=== PATIENT | male | born 1955 | race Caucasian/White ===

== ENCOUNTER 2018-05-28 07:43 | Inpatient (IN) | payer MEDICARE ==
[2018-05-28] VITALS (26 sets, daily range): BP systolic 148–179; BP diastolic 76–102; BMI 35.9
[~2018-05-28] VITALS: Ht 180.3 cm; Wt 100.3 kg
--- NOTE | ~2018-05-28 | HEMODYNAMI ---
PATIENT:ISAIAH GRAF MEDICAL RECORD: [id number] : 51 LOCATION:[facility] ADMISSION DATE: 05/28/18 Generatedon:05/31/201811:37 Patient name: ISAIAH GRAF Patient #: [id number] SSN: D OB: 1955 Date of study: 05/31/2018 Page: Of Hemodynamic Procedure Report Patient Data Patient Demographics Procedure consent was obtained First Name: ISAIAH Gender: Male Last Name: LESIA : 1955 Patient #: [id number] Age: 62 year(s) Race: Unknown Additional ID: [id number] Contact details [address]: [address] [place] [address] State: [place] City: [place] Zip code: [address] Past Medical History Allergies: No known allergies Admission Admission Data Admission Date: 05/28/2018 Admission Time: 9:12 Room #: [facility] Lab Results Lab Result Date: 05/31/2018 Lab Result Time: 5:30 Biochemistry Name Units Result Min Max BUN mg/dl 50 --(----)-* 7 18 Creatinine mg/dl 4.6 --(----)-* 0.6 1.3 CBC Name Units Result Min Max Hematocrit % 31.9 *-(----)-- 42 54 Hemoglobin g/dl 10.8 *-(----)-- 13.5 17.5 Procedure Procedure Types Cath Procedure Diagnostic Procedure [facility] w/Coronaries PCI Procedure Coronary Stent Coronary Stent Initial Procedure Description Procedure Date Procedure Date: 05/31/2018 Procedure Start Time: 11:22 Procedure End Time: 11:35 Procedure Staff Name Function Dwight Olivera MD Performing Physician Ollie Bellamy RT Monitor Yahir Guaman RN Nurse Nadia Kat RT Scrub Cortes Dawson RT Steel Engraver Procedure Data Cath Procedure Fluoroscopy Diagnostic fluoroscopy Total fluoroscopy Time: 2.7 time: 2.7 min min Diagnostic fluoroscopy Total fluoroscopy dose: 758 dose: 758 mGy mGy Contrast Material Contrast Material Type Amount (ml) Isovue 300 80 Entry Location Entry Primary Successful Side Size Upsize Upsize Entry Closure Lee ccessful Closure Location (Fr) 1 (Fr) 2 (Fr) Remarks Device Remarks Radial Right 6 Fr Mechanical artery Short Compression Estimated blood loss: 10 ml Diagnostic catheters Device Type Used For End Catheter Placement DIAGNOSTIC [place] 110cm 5 Procedure Fr catheter (001501) Procedure Complications No complications Procedure Medications Medication Administration Route Dosage 0.9% NaCl I.V. 10 ml/hr Oxygen etCO2 Nasal cannula 2 l/min Heparin Flush Bag added to field 2 bags (1000units/500ml NS) Lidocaine 2% added to field 20 Dobutamine 5 mcg/kg/min (500mg/250ml D5W) Radial Cocktail added to field 1 syringe (Verapomil 2mg/Nitro 400mcg/Heparin 1500units) Versed I.V. 2 mg Fentanyl I.V. 100 mcg Radial Cocktail I.A. 1 syringe (Verapomil 2mg/Nitro 400mcg/Heparin 1500units) Heparin Bolus I.V. 4000 units Integrilin (Bolus I.V. 9.5 ml 2mg/ml) Integrilin (Bolus wasted 0.5 ml 2mg/ml) Plavix P.O. 600 mg Hemodynamics Rest HGB: 10.8 (g/dl) Heart Rate: 65 (bpm) Snapshots Pre Cath Intra NCS Post Cath Vital Signs Time Heart Resp SPO2 etCO2 NIBP (mmHg) Rhythm Pain Sedation Rate (ipm) (%) (mmHg) Status Level (bpm) 11:12:00 71 16 94 26.7 145/92(116) NSR 0 (11) 10(A) , No pain 11:16:28 70 12 96 31.1 157/80(121) NSR 0 (11) 10(A) , No pain 11:20:57 70 14 90 29.6 144/87(123) NSR 0 (11) 10(A) , No pain 11:25:17 73 14 93 31.9 109/65(96) NSR 0 (11) 9(A) , No pain 11:29:33 69 12 89 28.2 126/71(96) NSR 0 (11) 9(A) , No pain 11:33:53 71 15 90 28.2 131/79(105) NSR 0 (11) 10(A) , No pain Medications Time Medication Route Dose Verified Delivered Reason Notes Effectiveness by by 11:09:57 0.9% NaCl I.V. 10 ml/hr Yahir Yahir Per physician Rowena Guaman RN RN 11:10:07 Oxygen etCO2 2 l/min Yahir Yahir for low 02 sats Nasal Rowena Guaman cannula RN RN 11:10:19 Heparin Flush added to 2 bags Yahir Yahir used for Bag field Lorrobert Lorrobert procedure (1000units/500ml RN RN NS) 11:10:30 Lidocaine 2% added to 20ml vial Yahir Yahir for local field Lorigan Lorrobert anesthetic RN RN 11:11:16 Dobutamine I.V. 5 Yahir Yahir Per physician (500mg/250ml drip mcg/kg/min Rowena Guaman D5W) infusing RN RN upon arrival 11:18:37 Radial Cocktail added to 1 syringe Yahir Yahir used for (Verapomil field Lorigan Lorigan procedure 2mg/Nitro RN RN 400mcg/Heparin 1500units) 11:21:06 Versed I.V. 2 mg Yahir Yahir for sedation Rowena Guaman RN RN 11:21:14 Fentanyl I.V. 100 mcg Yahir Yahir for sedation Rowena Guaman RN RN 11:23:32 Radial Cocktail I.A. 1 syringe Yahir Dwight for (Verapomil Lorigan Tauth MD vasodilation 2mg/Nitro RN 400mcg/Heparin 1500units) 11:28:22 Heparin Bolus I.V. 4000 units Yahir Yahir for Rowena Guaman anticoagulation RN RN 11:28:38 Integrilin I.V. 9.5 ml Yahir Yahir for (Bolus 2mg/ml) Rowena Guaman antiplatelet RN RN therapy 11:28:50 Integrilin wasted 0.5 ml Yahir Yahir to sharp's (Bolus 2mg/ml) Rowena Guaman RN RN 11:37:22 Plavix P.O. 600 mg Yahir Yahir for Rowena Guaman antiplatelet RN RN therapy Procedure Log Time Note 10:52:56 Time tracking: Regular hours (M-F 7:00 - 5:00) 10:53:00 Plan of Care:Hemodynamics will remain stable., Cardiac rhythm will remain stable., Comfort level will be maintained., Respiratory function will remain adequate., Patient/ family verbilizes understanding of procedure., Procedure tolerated without complication., Recovers from procedure without complications.. 10:53:11 Cortes Dawson RT(R) sent for patient. Start room use. 10:58:15 Patient received from CVICU to CCL 1 Alert and oriented. Tansferred to table in Supine position. 10:58:16 Warm blankets applied, and lorie hugger turned on for patient comfort. 10:58:16 Correct patient and procedure confirmed by team. 10:58:17 Signed procedure consent form obtained from patient. 10:58:18 ECG and BP/O2 sat monitors applied to patient. 10:58:19 Pre-procedure instructions explained to patient. 10:58:19 Pre-op teaching completed and patient verbalized understanding. 10:58:29 H&P Date Dictated: 05/28/2018 Within 30 days and on chart.. 10:59:15 Lab Result : BUN 50 mg/dl 10:59:15 Lab Result : Hemoglobin 10.8 g/dl 10:59:15 Lab Result : Creatinine 4.6 mg/dl 10:59:15 Lab Result : Hematocrit 31.9 % 10:59:17 Lab results completed and on chart. 11:09:57 0.9% NaCl 10 ml/hr I.V. was administered by Yahir Guaman RN; Per physician; 11:10:07 Oxygen 2 l/min etCO2 Nasal cannula was administered by Yahir Guaman RN; for low 02 sats; 11:10:19 Heparin Flush Bag (1000units/500ml NS) 2 bags added to field was administered by Yahir Guaman RN; used for procedure; 11:10:30 Lidocaine 2% 20ml vial added to field was administered by Yahir Guaman RN; for local anesthetic; 11:10:36 Vital chart was started 11:10:40 Baseline sample Acquired. 11:10:43 Rhythm: sinus rhythm 11:10:44 Full Disclosure recording started 11:10:47 Family unavailable. 11:10:52 Patient NPO since Midnight. 11:11:02 Patient allergic to No known allergies 11:11:09 Is the patient allergic to Iodine/contrast media? No. 11:11:16 Dobutamine (500mg/250ml D5W) 5 mcg/kg/min I.V. drip infusing upon arrival was administered by Yahir Guaman RN; Per physician; 11:11:18 Is patient on blood thinner?No 11:11:57 Patient diabetic? Yes. 11:11:59 If diabetic: On Metformin? Yes 11:12:23 last dose metformin before hospital stay 11:12:24 ----Pre-sedation anethsthesia assessment.---- 11:12:27 Previous problem with sedation/anesthesia? No ? 11:12:30 Snore? Yes 11:12:31 Sleep apnea? Yes 11:12:33 Deviated septum? No 11:12:34 Opens mouth fully? Yes 11:12:36 Sticks out tongue? Yes 11:12:39 Airway obstruction? No ? 11:12:41 Dentures? No ? 11:12:43 Pre procedure: right dorsailis pedis pulse 1+ Palpable, but thready & weak; easily obliterated 11:12:46 Modified Mayco's test Ulnar < 7 seconds 11:12:48 Patient pain scale 0/10 ?. 11:13:00 IV patent on arrival in right IJ with 0.45%NaCl at KVO. 11:13:12 IV patent on arrival in right antecubital with 0.9% NaCl at 10ml/hr. 11:13:47 ij does not have saline/no selection 11:13:54 Right Radial & Right Groin area was prepped with chlora-prep and draped in sterile fashion 11:13:55 Alarms reviewed by R. N. 11:13:56 Sharps counted by scrub and verified by R.N. 11:14:16 Physician arrived 11:18:37 Radial Cocktail (Verapomil 2mg/Nitro 400mcg/Heparin 1500units) 1 syringe added to field was administered by Yahir Guaman RN; used for procedure; 11:20:13 Zero performed for pressure channel P1 11:20:30 --------ALL STOP TIME OUT------ 11:20:31 Final Timeout: patient, procedure, and site verified with staff and physician. All members of the team are in agreement. 11:20:33 Right Radial & Right Groin site verified by team. 11:20:36 Maximum allowable Isovue 300 dose 300ml. Physician notified. (300ml for normal creatinines. For patients with creatinine of 1.7 or higher multiply weight(kg) x 5 divided by creatinine.) 11:20:38 Fire Safety Assessment: A--An alcohol-based skin anteseptic being used preoperatively., C--Open oxygen or nitrous oxide is being used., D--An ESU, laser, or fiber-optic light is being used. 11:20:42 Physical assessment completed. ASA score P 3 - A patient with severe systemic disease as per Dwight Olivera MD. 11:20:45 Sedation plan: IV Moderate Sedation Medication:Versed, Fentanyl 11:20:50 Use device set Radial Dx or PCI 11:20:51 ACIST Syringe (79289) opened to sterile field. 11:20:51 Medline Cath Pack ([id number]) opened to sterile field. 11:20:52 Bag Decanter (2002) opened to sterile field. 11:20:53 ACIST Hand Control (72294) opened to sterile field. 11:20:53 ACIST Manifold (82446) opened to sterile field. 11:20:53 Tegaderm 4 x 4 (1626W) opened to sterile field. 11:20:54 MBrace Wrist Support ([id number]) opened to sterile field. 11:20:54 DIAGNOSTIC WIRE .035 260cm J wire (977311) opened to sterile field. 11:20:56 SHEATH 6FR Slender (08-4858) opened to sterile field. 11:21:06 Versed 2 mg I.V. was administered by Yahir Guaman RN; for sedation; 11:21:14 Fentanyl 100 mcg I.V. was administered by Yahir Guaman RN; for sedation; 11:22:32 Procedure started. 11:22:35 Local anesthetic to right radial artery with Lidocaine 2% by Dwight Olivera MD.INITIAL ACCESS ONLY 11:22:44 A 6 Fr Short sheath was inserted into the Right Radial artery 11:22:52 A DIAGNOSTIC [place] 110cm 5 Fr catheter (697403) was advanced over the wire and used for Procedure. 11:23:32 Radial Cocktail (Verapomil 2mg/Nitro 400mcg/Heparin 1500units) 1 syringe I.A. was administered by Dwight Olivera MD; for vasodilation; 11:24:09 LV gram done using RUVALCABA 11:24:12 Injector settings: Ml/sec: 5, Volume: 15, 11:24:13 LV hemodynamics recorded. 11:24:18 EF : 35 % 11::22 LCA angiography performed. 11::52 INFLATOR Merit Jonapak (XG6857) opened to sterile field. 11::52 CHOICE PT Extra Support 182cm wire ([id number]) opened to sterile field. 11:25:52 RCA angiography performed. 11::11 Catheter removed. 11::48 GUIDE 6FR XBLAD 3.5 catheter ([id number]) opened to sterile field. 11::12 6 Fr xblad 3.5 guide catheter was inserted over the wire 11::24 choice pt es wire advanced. 11::22 Heparin Bolus 4000 units I.V. was administered by Yahir Guaman RN; for anticoagulation; 11::29 Wire advanced across lesion. 11:28:38 Integrilin (Bolus 2mg/ml) 9.5 ml I.V. was administered by Yahir Guaman RN; for antiplatelet therapy; 11::50 Integrilin (Bolus 2mg/ml) 0.5 ml wasted was administered by Yahir Guaman RN; to sharp's; 11:29:33 Place stent Inflation Number: 1 A INTEGRITY RX 2.75 x 26 stent ([id number]) was prepped and advanced across the Mid CX. The stent was deployed at 17 RAFIQ for 0:10 (min:sec). 11:29:47 Stent catheter was removed intact over wire. 11:31:53 Place stent Inflation Number: 1 A INTEGRITY RX 3.0 x 22 stent ([id number]) was prepped and advanced across the Prox CX. The stent was deployed at 15 RAFIQ for 0:10 (min:sec). 11:32:02 Stent catheter was removed intact over wire. 11:32:02 Wire removed. 11:32:03 Guide catheter removed. 11:32:55 TR BAND Large ([id number]) opened to sterile field. 11:33:04 Sheath removed intact; hemostasis achieved with Mechanical Compression to the Right Radial artery. 11:33:05 Procedure ended.(Physican Out) 11:33:16 Fluoroscopy time 02.70 minutes. :33:21 Fluoroscopy dose: 758 mGy 11:33:21 Flurop Dose total: 758 11:33:24 Contrast amount:Isovue 300 80ml. 11:33:26 Sharps counted by scrub and verified by R.N. 11:33:28 TR band inflated with 12cc of air. 11:33:29 Insertion/operative site no bleeding no hematoma. 11:33:33 Post right radial artery:stable, soft, clean and dry 11:33:34 Post Procedure Pulses reassessed and unchanged 11:33:37 Post-procedure physical assessment completed. ASA score P 3 - A patient with severe systemic disease as per Dwight Olivera MD. 11:34:06 Post procedure rhythm: unchanged. 11:34:09 Estimated blood loss: 10 ml 11:34:10 Post procedure instruction explained to patient.Patient verbalizes understanding. 11:34:11 Patient needs reinforcement of post procedure teaching. 11:34:23 Procedure type changed to Cath procedure, Diagnostic procedure, LHC, LHC w/Coronaries, PCI procedure, Coronary Stent, Coronary Stent Initial 11:35:02 Procedure and supply charges have been captured, reviewed, submitted and are correct. 11:35:04 Procedure Complication : No complications 11:35:06 Vital chart was stopped 11:35:06 See physician's report for complete and final results. 11:35:07 Report given to Pre/Post Procedure Room. 11:35:09 Patient transfered to Pre/Post Procedure Room with Stretcher. 11:35:11 Procedure ended. 11:35:11 Full Disclosure recording stopped 11:35:14 End room use (Document Last) 11:37:22 Plavix 600 mg P.O. was administered by Yahir Guaman RN; for antiplatelet therapy; Intervention Summary Intervention Notes Time ActionType Lesion and Equipment Action# Pressure Duration Attributes Used 11:29:33 Place stent Mid CX INTEGRITY RX 1 17 00:10 2.75 x 26 stent ([id number]) 11:31:53 Place stent Prox CX INTEGRITY RX 1 15 00:10 3.0 x 22 stent ([id number]) Device Usage Item Name Manufacture Quantity Catalog Number Hospital Part Current Mini mal Lot# / Charge Number Stock Stock Serial# Code ACIST Acist 1 96018 197412 474144 708604 20 Syringe AirPair (27498) MoPowered Medline Cath Medline 1 [id number] 436540 86795 259955 5 Pack ([id number]) Bag Decanter Microtek 1 032965 50922 858779 5 (2001S) Medical Inc. ACIST Hand Acist 1 58070 264995 837306 098510 5 Control Medical (17389) Systems Inc ACIST Acist 1 46186 559450 803992 032651 5 Manifold Medical (49488) Systems Inc Tegaderm 4 x 3M 1 1626W 708316 992521 678037 5 4 (1626W) MBrace Wrist Advanced 1 140-0250-00 143153 82511 444811 5 Support Vascular (148547111) Dynamics DIAGNOSTIC St Kike 1 814880 450222 974679 026374 30 WIRE .035 260cm J wire (512911) SHEATH 6FR Terumo 1 [id number] 429469 965982 419490 5 Slender (80-1060) DIAGNOSTIC Terumo 1 40-1133 873495 097742 571148 5 [place] 110cm 5 Fr catheter (387938) INFLATOR [employer] [place] 1 OR6050 681284 335107 900217 15 [facility] Medical BasixCompak (UN0674) CHOICE PT Newcomb 1 [id number] 958444 984004 643286 5 Extra Scientific Support 182cm wire ([id number]) GUIDE 6FR Cardinal 1 [id number] 022341 798579 375223 10 XBLAD 3.5 Health catheter (70624919) INTEGRITY RX Medtronic 1 [id number] 031232 037339 456939 5 [id number] 2.75 x 26 stent ([id number]) INTEGRITY RX Medtronic 1 [id number] 690117 303493 534767 5 [id number] 3.0 x 22 stent ([id number]) TR BAND Terumo 1 [id number] 616033 810589 115149 40 Large ([id number]) Signature Audit [place] Stage Time Signature Unsigned Intra-Procedure 05/31/2018 Ollie Bellamy 11:37:48 AM RT(R) Signatures Monitor : Ollie Bellamy RT Signature : Date : Time : [facility] [address] [place] [address]
[2018-05-28] MEDS ORDERED: ASPIRIN81 MG (09:28)
[2018-05-28] MEDS ORDERED: CATAPRES0.2 MG PO (09:29)
--- NOTE | 2018-05-28 10:20 | NUR ---
RECEIVED FROM ER INTO ROOM CV2 AND HOOKED UP TO MONITORING DEVICES. IMMEDIATLY PLACED ON BIPAP BY RT. SATTING 91% ON 75% FI02. RR 20 EVEN AND UNLABORED. CM=NS RATE OF 84. BP 159/96. RIGHT AC 20 GA PIV=SL. HAS "CANCER" ON EACH SIDE OF HIS NOSE AND RIGHT TEMPORAL. DIME SIZE X3.CLWR. CPOC.
--- NOTE | 2018-05-28 11:22 | NUR ---
DR. WHEELER HAS ALREADY SEEN PT. IN ER PER ENGLISH TEACHER.
--- NOTE | 2018-05-28 12:00 | NUR ---
DR. WHEELER HERE IN CVICU. DISCUSSED HNT WITH HIM. NO NEW ORDERS. GOING TO BE DYALIZED LATER THIS EVENING.
[2018-05-28 12:04] LABS: BASOPHILS 0.4 % (0-2); EOSINOPHILS 0.6 % (0-7); HEMATOCRIT 33.7 % (42.0-54.0); HEMOGLOBIN 11.3 g/dL (13.5-17.5); IMMATURE GRANULOCYTES 0.2 % (0-5); LYMPHOCYTES 18.1 % (15-50); MCHC 33.5 g/dL (31.0-37.0); MCV 92.3 fL (80.0-100.0); MEAN PLATELET VOLUME 9.7 fL (7.4-10.4); MONOCYTES 7.2 % (2-11); NEUTROPHILS 73.5 % (40-80); PLATELET COUNT 161 10x3/uL (130-400); RBC 3.65 10x6/uL (4.20-6.10); RDW 13.8 % (11.5-14.5); WBC 8.4 10x3/uL (4.8-10.8)
[2018-05-28 12:19] LABS: INR 1.08 (0.85-1.17); PROTIME 13.5 SECONDS (11.6-15.0)
[2018-05-28 12:41] LABS: ALBUMIN 2.8 g/dL (3.4-5.0); ANION GAP 16.9 mmol/L (8-16); BILIRUBIN - TOTAL 0.55 mg/dL (0.2-1.3); CALCIUM 8.6 mg/dL (8.5-10.1); CARBON DIOXIDE 24.5 mmol/L (21.0-32.0); CREATININE - SERUM 4.7 mg/dL (0.6-1.3); POTASSIUM - SERUM 3.4 mmol/L (3.5-5.1); PROTEIN - SERUM 7.3 g/dL (6.4-8.2)
[2018-05-28 12:43] LABS: TROPONIN-I 1.243 ng/mL (0.000-0.060)
--- NOTE | 2018-05-28 12:52 | NUR ---
I CALLED DR. WHEELER ABOUT TROPONIN LEVEL OF 1.243 DOCUMENTED AT 1140. CONSULT CARDIOLOGY AND GET ECHO TODAY.
--- NOTE | 2018-05-28 14:34 | NUR ---
ECHO BEING DONE.
--- NOTE | 2018-05-28 15:09 | NUR ---
REASSESSMENT COMPLETED PER FLOW SHEET. NO ACUTE CHANGES.
--- NOTE | 2018-05-28 17:05 | NUR ---
REMAINS ON BIPAP. CM=NS RATE OF 63.
--- NOTE | 2018-05-28 18:44 | NUR ---
CONSENT OBTAINED FOR PLACEMENT OF TRYALISIS CATH.
--- NOTE | 2018-05-28 19:22 | NUR ---
BEDSIDE REPORT GIVEN BY DEPARTING RN. VSS. PT LAYING IN BED ON BIPAP. SIP OF WATER PROVIDED. REPOSITIONS SELF. SAFETY MEASURES IN PLACE. CBIR.
--- NOTE | 2018-05-28 20:13 | NUR ---
ASSESSMENT COMPLETE. AAOX4. PERRLA. RT AC PIV INFUSING MD ORDERED MEDS. F/C NOTED AND DRAINING CLEAR YELLOW URINE. AFEBRILE. SEE FLOWSHEET FOR FULL ASSESSMENT. SAFETY MEASURES IN PLACE. CBIR.
--- NOTE | 2018-05-28 23:06 | NUR ---
DR. HO AT BEDSIDE TO PERFORM TRIAL CATH. PT TOLERATED WELL.
--- NOTE | 2018-05-28 23:19 | NUR ---
REASSESSMENT COMPLETE. NO CHANGES NOTED. NO SS OF DISTRESS.
[2018-05-29] VITALS (24 sets, daily range): BP systolic 100–179; BP diastolic 55–94; Ht 180.3 cm; Wt 100.3 kg
--- NOTE | 2018-05-29 02:47 | NUR ---
DIALYSIS COMPLETE. 4L PULLED.
--- NOTE | 2018-05-29 03:17 | NUR ---
REASSESSMENT COMPLETE. NO CHANGES NOTED. DENIES PAIN. PLEASANT.
[2018-05-29 06:35] LABS: BASOPHILS 0.3 % (0-2); EOSINOPHILS 1.6 % (0-7); HEMATOCRIT 35.8 % (42.0-54.0); IMMATURE GRANULOCYTES 0.2 % (0-5); LYMPHOCYTES 17.6 % (15-50); MCH 30.9 pg (26.0-34.0); MCHC 33.5 g/dL (31.0-37.0); MCV 92.3 fL (80.0-100.0); MEAN PLATELET VOLUME 9.9 fL (7.4-10.4); MONOCYTES 6.8 % (2-11); NEUTROPHILS 73.5 % (40-80); PLATELET COUNT 180 10x3/uL (130-400); RBC 3.88 10x6/uL (4.20-6.10); RDW 13.9 % (11.5-14.5); WBC 9.2 10x3/uL (4.8-10.8)
[2018-05-29 06:41] LABS: CALCIUM 8.7 mg/dL (8.5-10.1); CARBON DIOXIDE 26.3 mmol/L (21.0-32.0); CREATININE - SERUM 3.7 mg/dL (0.6-1.3); PHOSPHOROUS 4.5 mg/dL (2.5-4.9); POTASSIUM - SERUM 3.3 mmol/L (3.5-5.1)
[2018-05-29 06:45] LABS: TROPONIN-I 0.776 ng/mL (0.000-0.060)
--- NOTE | 2018-05-29 07:00 | NUR ---
REPORT RECEVIED FROM THE OFF STORM DOMINGUEZ. SEE ASSESSMENT IN THE PTS FLOW SHEET. PT A&OX4. PT LYING IN BED WITH A BIPAP ON AT 40%. VSS AT THIS TIME. NSR WITH ST DEPRESSION. RIGHT IJ TRIALYSIS NOTED WITH BUMEX INFUSING. SEE IV FLOW SHEET. FC NOTED WITH CLEAR, YELLOW URINE. DENIES PAIN AT THIS TIME. CALL LIGHT IN REACH. WILL CONT POC.
--- NOTE | 2018-05-29 08:00 | NUR ---
DR WHEELER IN THE UNIT.
--- NOTE | 2018-05-29 10:16 | NUR ---
BIPAP REMOVED AND PLACED ON 4L VIA NC. PT TOELRATING WELL. PO FLUIDS GIVEN WITH NO ISSUES. NO DYSPAGIA NOTED. PT TOOK PO MEDS WITH NO ISSUES. CALL LIGHT IN REACH. WILL CONT POC.
--- NOTE | 2018-05-29 11:30 | NUR ---
LUNCH TRAY PROVIDED FOR THE PT. NO DYSPAGIA NOTED.
--- NOTE | 2018-05-29 14:49 | NUR ---
IV STARTED X1 ATTEMPT TO RIGHT ARM. PATENT. DRESSING C/D/I. RIGHT IJ CENTRAL LINE DC'D PER DR BOYER ORDERS. LEFT IRON DRAIN REMOVED PER ORDERS. TPM WIRES DISCONNECTED AND WIRES COLIED. SUBSTERNAL DRESSING CHANGED AND C/D/I. PT TOLERATED WELL. WILL CONT POC.
--- NOTE | 2018-05-29 15:45 | NUR ---
DR LIA RUTHERFORD R/T HYPERTENSION AND DOBUTAMINE. SEE ORDERS FOR MEDICATION CHANGE.
--- NOTE | 2018-05-29 15:56 | NUR ---
INSTRUCTED THE PT NOT TO PICK AT THE SORES ON HIS NOSE FOR INFECTION REASONS. THE PT STATES "I CANT HELP IT. I KEEP FORGETING" WILL ATTEPMT TO INTERVEAN BEFORE HE STARTS SCRATCHING HIS NOSE.
--- NOTE | 2018-05-29 18:00 | NUR ---
SPOKE WITH THE DIALYSIS NURSE ABOUT DR WHEELER WANTING TO HAVE THE PT DIALYSED. THE NURSE STATED THEY HAVE NO ORDERS FOR DIALYSIS TODAY. DR WHEELER PAGED FOR CLARIFICATION.
--- NOTE | 2018-05-29 18:22 | NUR ---
DR SHAW CALLED AND BRAZING MACHINE OPERATOR HELPER FOR DR WHEELER. DR SHAW UPDATED ON THE PTS CONDITION/LABS/MEDICAITON. DR SHAW OK FOR THE PT TO WAIT UNTIL TOMORROW FOR DIALYSIS.
--- NOTE | 2018-05-29 19:09 | NUR ---
BEDSIDE SHIFT REPORT GIVEN BY DEPARTING RN. PT LAYING IN BED WATCHING TV. NOT HAPPY WITH TECHNICAL ISSUES WITH TV. NURSE CHANGED CHANNEL ON BACK OF TV FOR PT UNTIL DESIREABLE TV SHOW WAS CHOSEN. SAFETY MEASURES IN PLACE. CBIR.
--- NOTE | 2018-05-29 20:33 | NUR ---
HS MEDS GIVEN WITHOUT DIFFICULTY. SNACK PROVIDED.
[2018-05-29 21:10] LABS: CREATININE - URINE 58.6 mg/dL (30-125)
[2018-05-29 21:11] LABS: APPEARANCE HAZY (CLEAR); BILIRUBIN NEGATIVE (NEGATIVE); COLOR YELLOW (YELLOW); GLUCOSE 50 mg/dL (NEGATIVE); KETONE NEGATIVE (NEGATIVE); NITRITE NEGATIVE (NEGATIVE); PROTEIN 1+ mg/dL (NEGATIVE); SPECIFIC GRAVITY 1.015 (1.005-1.020); UROBILINOGEN NORMAL (NORMAL)
[2018-05-29 21:12] LABS: BACTERIA FEW /hpf (NONE SEEN); RED CELLS - URINE 0-5 /hpf (0-5)
[2018-05-29 21:18] LABS: PRO/CRE RATIO URINE 6.2 mg/g; PROTEIN - URINE 362.1 mg/dL (0.0-11.9)
--- NOTE | 2018-05-29 22:54 | NUR ---
PAGED DR. SHAW REGARDING PTS REPEATED REQUEST FOR SLEEPING MEDICATION AND PT ELEVATED FEVER. ORDERS RECEIVED, VERIFIED, AND READ BACK.
--- NOTE | 2018-05-29 23:11 | NUR ---
REASSESSMENT COMPLETE. VSS. LAYING IN BED WATCHING TV. VOICES CONCERN ABOUT NOT GETTING ANY SLEEP. PRN MED ALREADY GIVEN. INSTRUCTED PT TO BE PATIENT AND LET THE MEDICATION ABSORB. VERBALIZES UNDERSTANDING. SAFETY MEASURES IN PLACE. CBIR.
[2018-05-30] VITALS (17 sets, daily range): BP systolic 123–168; BP diastolic 68–86
--- NOTE | 2018-05-30 03:05 | NUR ---
REASSESSMENT COMPLETE. VSS. NO CHANGES NOTED. ASLEEP SHOWING NO SS OF DISTRESS.
--- NOTE | 2018-05-30 07:00 | NUR ---
REPORT RECEVIED FROM THE OFF GOING RN. SEE ASSESSMENT IN THE FLOW SHEET. PT IN BED RESTING WITH HIS EYES CLOSED ON HIS BIPAP. PT WOKE UP AND BIPAP REMOVED. VSS AT THIS TIME. PT A&OX4. NO COMPLAINTS AT THIS TIME. DENIES PAIN. RIGHT IJ TRIALYSIS NOTED. DRESSING C/D/I. SEE IV FLUIDS IN FLOW SHEET. DR WHEELER IN THE UNIT. AM LABS STILL PENDING. FC NOTED WITH CLEAR YELLOW URINE. BREAKFAST TRAY PROVIDED. CALL LIGHT IN REACH. WILL CONT POC.
[2018-05-30 07:25] LABS: BASOPHILS 0.3 % (0-2); EOSINOPHILS 2.5 % (0-7); HEMATOCRIT 31.9 % (42.0-54.0); HEMOGLOBIN 10.8 g/dL (13.5-17.5); IMMATURE GRANULOCYTES 0.1 % (0-5); LYMPHOCYTES 25.8 % (15-50); MCHC 33.9 g/dL (31.0-37.0); MCV 91.7 fL (80.0-100.0); MEAN PLATELET VOLUME 9.9 fL (7.4-10.4); NEUTROPHILS 62.3 % (40-80); PLATELET COUNT 180 10x3/uL (130-400); RBC 3.48 10x6/uL (4.20-6.10); RDW 13.6 % (11.5-14.5)
[2018-05-30 07:31] LABS: ANION GAP 14.7 mmol/L (8-16); CALCIUM 8.4 mg/dL (8.5-10.1); CARBON DIOXIDE 27.2 mmol/L (21.0-32.0); CREATININE - SERUM 4.6 mg/dL (0.6-1.3); PHOSPHOROUS 4.8 mg/dL (2.5-4.9)
[2018-05-30 07:39] LABS: WBC 6.8 10x3/uL (4.8-10.8)
[2018-05-30 07:56] LABS: POTASSIUM - SERUM 2.9 mmol/L (3.5-5.1)
--- NOTE | 2018-05-30 08:15 | NUR ---
DR WHEELER PAGED R/T AM LABS.
--- NOTE | 2018-05-30 08:32 | NUR ---
DR SHAW PAGED BACK FOR DR WHEELER. INFORMED HIM OF AM LABS. N.O FOR 20 KCL RIDER X2 TO EQUAL 40 MEQ OF K.
--- NOTE | 2018-05-30 10:34 | NUR ---
PT RECIEVED A FULL BEDBATH AND LINEN CHANGE. PT ASSISTED OOB AND INTO HIS BEDSIDE CHAIR. VSS. PT TOELRATED WELL. WILL CONT POC.
--- NOTE | 2018-05-30 10:38 | NUR ---
PT STATES THE PHARMACY HE USES IS THE [facility] IN [place]
--- NOTE | 2018-05-30 12:00 | NUR ---
PT LUNCH TRAY PROVIDED FOR THE PT. VSS. NO S/SX OF DISTRESS/DISCOMFORT NOTED. WILL CONT POC.
[2018-05-30 12:20] LABS: HEPATITIS C ANTIBODY <0.1 S/CO RAT (0.0-0.9)
--- NOTE | 2018-05-30 15:10 | OP ---
PATIENT NAME: ISAIAH GRAF MEDICAL RECORD: [id number] :51 LOCATION:D.CVI D.CV02 ADMISSION DATE:05/28/18 SURGEON: ARACELI HO MD DATE OF OPERATION: 05/28/2018 PREOPERATIVE DIAGNOSES: 1. Need for dialysis access. 2. Rjnvr-pp-fkzrhhw renal failure. 3. Hypoxia. 4. Hypertension. 5. Morbid obesity. POSTOPERATIVE DIAGNOSES: 1. Need for dialysis access. 2. Iqbjh-hn-zvfethy renal failure. 3. Hypoxia. 4. Hypertension. 5. Morbid obesity. PROCEDURE: Right IJ 15 cm Trialysis catheter placement. SURGEON: Araceli Ho MD REPORT OF PROCEDURE: The patient's right chest was prepped and draped in sterile fashion. A needle was used to cannulate the right internal jugular vein and a guidewire was advanced with ease. Over this wire, a dilator was placed followed by the Trialysis catheter. The catheter aspirated nonpulsatile dark blood and flushed easily in all 3 ports. This was sutured into place with 3-0 silk ties and dressed appropriately. COMPLICATIONS: None. CONDITION: Stable. ANESTHESIA: Local. BLOOD LOSS: Minimal. Procedure done at the bedside. TRANSINT:[id number] Voice Confirmation ID: [id number] DOCUMENT ID: [id number] ARACELI HO MD at 1510 CC: [id number] DICTATION DATE: 05/28/18 2329 DELI SLICER: 05/29/18 0141 ADM IN [facility] [address] [id number]
--- NOTE | 2018-05-30 15:23 | NUR ---
PT RESTING IN HIS BEDSIDE CHAIR. VSS. NO COMPLAINTS AT THIS TIME. CALL LIGHT IN REACH. WILL CONT POC.
--- NOTE | 2018-05-30 16:13 | MORECARE ---
CASE MANAGEMENT DISCHARGE SUMMARY PATIENT: ISAIAH GRAF UNIT: [id number] ADM DATE: 05/28/18 AGE: 62 : 53 SEX: M ROOM/BED: D[facility] AUTHOR: ARTUR HINDS PHYSICIAN: REFERRING PHYSICIAN: SILVINA WHEELER MD DATE OF SERVICE: 05/30/18 Discharge Plan Patient Name: ISAIAH GRAF [facility] [facility] 1955 Planned Disposition: Home or Self Care Anticipated Discharge Date: Discharge Date: Expected LOS: Initial Reviewer: [email or web address] Initial Review Date: 05/28/2018 Generated: 05/30/18 5:13 pm DCPIA - Discharge Planning Initial Assessment Updated by [email or web address]: Noelle Sapp on 05/30/18 4:12 pm * Is the patient Alert and Oriented? Yes * How many steps to enter\exit or inside your home? * PCP Andrew Graf [facility] * Pharmacy [facility] [phone] * Preadmission Environment Home with Family * ADLs Independent * Equipment None * List name and contact numbers for known caregivers / representatives who currently or will assist patient after discharge: Franklin Graf - [facility] [phone] * Verbal permission to speak to the caregivers and representatives has been obtained from the patient. Yes * Community resources currently utilized None * Additional services required to return to the preadmission environment? No * Can the patient safely return to the preadmission environment? Yes * Has this patient been hospitalized within the prior 30 days at any hospital? No Patient Name: ISAIAH GRAF Page [phone] at 1613 All edits/amendments must be made on the electronic document DICTATION DATE: 05/30/18 161 SALES ASSOCIATE KEY HOLDER: REG 05/30/18 161 RPT#: [id number] DC DATE: STATUS: ADM IN [facility] [address] [place] [address] END OF REPORT
--- NOTE | 2018-05-30 16:27 | MORECARE ---
CASE MANAGEMENT DISCHARGE SUMMARY PATIENT: ISAIAH GRAF UNIT: [id number] ADM DATE: 05/28/18 AGE: 62 : 53 SEX: M ROOM/BED: D[facility] AUTHOR: LIZET,DOC PHYSICIAN: REFERRING PHYSICIAN: SILVINA CASTANO MD DATE OF SERVICE: 05/30/18 Discharge Plan Patient Name: ISAIAH GRAF Facility: [facility]:[place] : 1955 Planned Disposition: Home or Self Care Anticipated Discharge Date: Discharge Date: Expected LOS: Initial Reviewer: [email or web address] Initial Review Date: 05/28/2018 Generated: 05/30/18 5:26 pm Comments DCP- Discharge Planning Updated by [email or web address]: Noelle Sapp on 05/30/18 3:[address] Patient Name: ISAIAH GRAF Admission Status: ER Accout number: [id number] Admission Date: 05-28-2018 : 1955 Admission Diagnosis:ACUTE RESPIRATORY FAILURE WITH HYPOXIA Attending: Silvina Castano Current LOS: 2 Anticipated DC Date: Planned Disposition: Home or Self Care Primary Insurance: MEDICARE A & B Discharge Planning Comments: CM met with patient at bedside. Patient states he lives at home with is friend. He plans on returning to their home upon discharge. He states he feels safe at his home. He states he will have family drive him home upon discharge. Patient may need outpatient hemodialysis upon discharge set up in [place]. CM emailed Marie Azeem of possibility of needing placement. Patient stated that he had been prescribed a medication and couldn't get it filled because of cost 250.00. CM contacted patients pharmacy [phone]. Pharmacist stated the drug was BIDIL (hydralazine and Isorbide dinitrate) combination drug and not covered on patients formulary. CM will continue to follow and assist as needed with discharge planning / needs. Panel Installer: Noelle Sapp DCPIA - Discharge Planning Initial Assessment Updated by [email or web address]: Noelle Sapp on 05/30/18 4:12 pm * Is the patient Alert and Oriented? Yes * How many steps to enter\exit or inside your home? * PCP Andrew Mcclure * Pharmacy [facility] [phone] * Preadmission Environment Home with Family * ADLs Independent * Equipment None * List name and contact numbers for known caregivers / representatives who currently or will assist patient after discharge: Franklin Graf - son - [phone] * Verbal permission to speak to the caregivers and representatives has been obtained from the patient. Yes * Community resources currently utilized None * Additional services required to return to the preadmission environment? No * Can the patient safely return to the preadmission environment? Yes * Has this patient been hospitalized within the prior 30 days at any hospital? No Last DP export: 05/30/18 3:13 p Patient Name: ISAIAH GRAF Page [phone] at 1627 All edits/amendments must be made on the electronic document DICTATION DATE: 05/30/181625 CHAIR INSPECTOR AND LEVELER: REG 05/30/181625 RPT#: [id number] DC DATE: STATUS: ADM IN [facility] [address] [place] [address] END OF REPORT
--- NOTE | 2018-05-30 18:27 | NUR ---
BED LINENS CHANGED. PT ASSISTED INTO BED. VSS. CALL LIGHT IN REACH. WILL CONT POC.
--- NOTE | 2018-05-30 19:41 | NUR ---
REPORT RECEIVED, SHIFT ASSESSMENT COMPLETED PER FLOW SHEET, SEE FOR DETAILS. RT IJ CVL DRESSING CHANGED USING STERILE TECHNIQUE. PPP. MEI CATHETER TO GRAVITY SECURED. DENIES NEEDS. SEE FLOW SHEET FOR COMPLETE ASSESSMENT. WILL CONTINUE TO MONITOR.
--- NOTE | 2018-05-30 20:35 | NUR ---
PATIENT HAS NOT RECEIVED DIALYSIS TODAY, ATTEMPTED TO CALL DIALYSIS CENTER MULTIPLE TIMES AND GOT NO ANSWER. CALLED DR. WATERS, WILL WAIT FOR CALL BACK.
--- NOTE | 2018-05-30 20:50 | NUR ---
DR. MARTINEZ RETURNED CALL, SPOKE TO HIM REGARDING TODAYS' ORDERS FOR DIALYSIS INFORMED HIM PATIENT HAS NOT RECEIVED DIALYSIS TODAY AND THAT HE IS SCHEDULED TO HAVE A HEART CATH TOMORROW AND THAT AM SHIFT RN AND THIS RN HAS BEEN UNABLE TO GET IN CONTACT WITH THE DIALYSIS PERSONNEL. REVIEWED LABS, IV DRIPS, AND PATIENT'S CURRENT STATUS. PER HIS ORDERS HE STATED THAT THE PATIENT DOES NOT NEED DIALYSIS TODAY AND IS OK TO HAVE HEART CATH TOMORROW.
--- NOTE | 2018-05-30 21:30 | NUR ---
SCHEDULED MEDS GIVEN, SEE EMAR FOR DETAILS. WATER PROVIDED. DENIES NEEDS. CALL LIGHT WITHIN REACH. WILL CONTINUE TO MONITOR.
--- NOTE | 2018-05-30 23:28 | NUR ---
REASSESSMENT COMPLETED PER FLOW SHEET, SEE FOR DETAILS. ON BIPAP AT 30%. DENIES NEEDS. CALL LIGHT WITHIN REACH. WILL CONTINUE TO MONITOR.
[2018-05-31] VITALS (22 sets, daily range): BP systolic 113–167; BP diastolic 56–85
--- NOTE | 2018-05-31 01:00 | NUR ---
NO ACUTE DISTRESS NOTED. ON BIPAP AT 30%. DENIES NEEDS. CALL LIGHT WITHIN REACH.
--- NOTE | 2018-05-31 03:10 | NUR ---
REASSESSMENT COMPLETED PER FLOW SHEET, SEE FOR DETAILS. NO ACUTE CHANGES NOTED. DENIES NEEDS AT THIS TIME. CALL LIGHT WITHIN REACH. WILL CONTINUE TO MONITOR.
--- NOTE | 2018-05-31 05:00 | NUR ---
RESTING, REMAINS ON BIPAP AT 30%, DENIES NEEDS. WILL CONTINUE TO MONITOR.
[2018-05-31 06:18] LABS: BASOPHILS 0.3 % (0-2); EOSINOPHILS 4.4 % (0-7); HEMATOCRIT 31.8 % (42.0-54.0); HEMOGLOBIN 10.7 g/dL (13.5-17.5); IMMATURE GRANULOCYTES 0.1 % (0-5); LYMPHOCYTES 23.4 % (15-50); MCH 30.8 pg (26.0-34.0); MCHC 33.6 g/dL (31.0-37.0); MCV 91.6 fL (80.0-100.0); MEAN PLATELET VOLUME 9.2 fL (7.4-10.4); MONOCYTES 8.1 % (2-11); NEUTROPHILS 63.7 % (40-80); PLATELET COUNT 158 10x3/uL (130-400); RBC 3.47 10x6/uL (4.20-6.10); RDW 13.6 % (11.5-14.5); WBC 7.3 10x3/uL (4.8-10.8)
[2018-05-31 06:29] LABS: ANION GAP 13.6 mmol/L (8-16); CALCIUM 8.3 mg/dL (8.5-10.1); CARBON DIOXIDE 28.2 mmol/L (21.0-32.0); CREATININE - SERUM 4.8 mg/dL (0.6-1.3); PHOSPHOROUS 5.7 mg/dL (2.5-4.9)
[2018-05-31 06:38] LABS: POTASSIUM - SERUM 3.8 mmol/L (3.5-5.1)
--- NOTE | 2018-05-31 07:00 | NUR ---
REPORT RECEVIED FROM THE OFF GOING RN. ASSESSMENT COMPLETED. VSS. NSR ON THE MONITOR WITH ST DEPRESSION. O2 AT 2L VIA NC. RIGHT IJ TRIALYSIS LINE NOTED. DRESSING C/D/I. FC NOTED WITH CLEAR, YELLOW URINE. SEE IV FLUIDS IN THE PTS FLOW SHEET. PT DENIES PAIN/NEEDS AT THIS TIME. CALL LIGHT IN REACH. WILL CONT POC.
--- NOTE | 2018-05-31 09:45 | NUR ---
NOTICED THE PTS SCD'S WERE HOOKED UP TO THE SCD MACHINE BUT WHERE OFF THE PT. EXPLAINED THE PURPOSE OF THE SCD'S AND PLACED THEM BACK ON THE PT. WITHIN THE HOUR, THE PT HAD REMOVED THEM. I EXPLAINED THE IMPORTANCE OF THE SCD'S AND THE PT PASSIVLY SAID "WELL OK". SCD'S PLACED BACK ON THE PT.
--- NOTE | 2018-05-31 09:55 | NUR ---
SPOKE WITH THE DIALYSIS NURSE AND EXPLAINED THE PT IS HAVING A ARTERIORGRAM PROCEDURE TODAY AND TO PLAN FOR DIALYSIS AFTERWARDS.
--- NOTE | 2018-05-31 10:44 | NUR ---
PT PREOPED PER ORDERS.
--- NOTE | 2018-05-31 10:58 | NUR ---
PT LEFT TO THE THERAPEUTIC RECREATION SPECIALIST IN A STABLE CONDTION. VSS. NO S/SX OF DISTRESS/DISCOMFORT NOTED. CONSENTS ALREADY SIGNED AND IN THE CHART.
--- NOTE | 2018-05-31 11:46 | NUR ---
REPORT RECEIVED FROM THE ORAL COMMUNICATION INSTRUCTOR. STENTS TO PTS CIRC X2. HEPARIN 4000 UNITS, INTEGRALIN BOLUS 9.5ML. 600 PLAVIX 2 VERSED AND 100 FENTANYL GIVEN IN ORAL COMMUNICATION INSTRUCTOR. R RADIAL 12 CC OF AIR TR BAND. RETURN TUESDAY FOR LAD.
--- NOTE | 2018-05-31 11:52 | NUR ---
PT BACK IN THE UNIT. R RADIAL TR BAND ON. VSS. PT A&O BUT SLIGHTLY DROWSEY. PULSES PALABLE. VSS AT THIS TIME. WILL CONT POC.
--- NOTE | 2018-05-31 11:55 | NUR ---
SMALL HEMATOMA NOTED TO RIGHT HEMATOMA. WILL
--- NOTE | 2018-05-31 11:58 | NUR ---
Reviewed labs and chart On Cardiac diet with 100% of all meals yesterday Starting dialysis today Weight 233lb RD following
--- NOTE | 2018-05-31 13:32 | NUR ---
PT A&OX4. PT FOLLOWING COMMANDS. MEAL TRAY PROVIDED. PT SHOWS NO S/SX OF DYSPAGIA NOTED. R RADIAL TR BAND REMAINS ON AND WEENING PER ORDERS. HEMATOMA REMAINS THE SAME SIZE. NO BLEEDING NOTED. WILL CONT POC.
--- NOTE | 2018-05-31 14:57 | NUR ---
PT COMPLAINING OF RLE PAIN. NO REDDNESS/SWELLING NOTED. PT KEEPS REFUSING TO KEEP ON HIS SCD'S REGARDLESS OF EDUCATION AND THIS NURSE REPLACING THEM. DR SHAW'S SEWING MACHINE ASSEMBLER NOTIFIED. N.O TO US THE RLE AND TO START LOVENOX 30 QD. SHE WAS ALSO NOTIFIED THAT [facility] HAVE NOT DIALYZED HIM YET. SEWING MACHINE ASSEMBLER STATED SHE WILL NOTIFY THEM.
--- NOTE | 2018-05-31 15:13 | NUR ---
DIALYSIS NURSE AT THE PTS BEDSIDE FOR TREATMENT.
--- NOTE | 2018-05-31 16:57 | NUR ---
PT ONLY DRANK 2/4 OF THE PRESCRIBED BOURBON FROM 05/30/18. PT DRANK THE REMAINING 2 BOTTLES FOR HIS 1700 DOSE PER ORDERS.
--- NOTE | 2018-05-31 17:02 | NUR ---
PT TOLERATING DIALYSIS WELL. VSS AT THIS TIME. PT DENIES NEEDS/WANTS. NO BLEEDING NOTED FROM R RADIAL. HEMATOMA NOTED UNCHAGED. WILL CONT POC.
--- NOTE | 2018-05-31 19:06 | NUR ---
DIALYSIS NURSE REMOVED 3L.
--- NOTE | 2018-05-31 19:21 | NUR ---
REPORT RECEIVED, SHIFT ASSESSMENT COMPLETED PER FLOW SHEET. AAOX4. IN BED WATCHING TV AND EATING DINNER. PPP. RT IJ CVL PATENT, NO SIGNS OF INFECTION OR INFILTRATION. DENIES PAIN OR NEEDS. SEE FLOW SHEET FOR COMPLETE ASSESSMENT. CALL LIGHT WITHIN REACH. WILL CONTINUE TO MONITOR.
--- NOTE | 2018-05-31 20:14 | NUR ---
BED ALARM GOING OFF, PATIENT ATTEMPTING TO GET OUT OF BED, STATES "I NEED TO GET UP AND DO MY BED" INFORMED HIM THAT HE CAN NOT GET OUT OF BED WITHOUT ASSISSTANCE. ASSISSTED PATIENT TO A STANDING POSITION, PATIENT UNSTEADY, INFORMED HIM THAT HE IS TOO UNSTEADY AND NEEDS TO SIT BACK IN BED. COMPLETE BED BATH GIVEN WITH SOAP AND WATER. COMPLETE BED LINEN CHANGE PROVIDED. MEI CARE PROVIDED. REPOSITIONED IN BED. DENIES OTHER NEEDS. CALL LIGHT WITHIN REACH. INFORMED HIM THAT I WOULD TALK TO HIS PHYSICIAN TO GET ORDERS FOR PT IN THE MORNING, HE STATED "OK". WILL CONTINUE TO MONITOR. BED ALARM ON.
--- NOTE | 2018-05-31 21:47 | NUR ---
BIPAP ALARM GOING OFF, UPON ENTERING ROOM FOUND PATIENT ATTEMPTING TO REACH FOR BIPAP MASK. ASKED HIM IF I COULD HELP HIM AND HE STATED "I AM JUST TRYING TO PUT IT ON" HE STATES THAT HE IS GOING TO SLEEP AND WOULD LIKE HIS BIPAP ON. ASSISSTED HIM PLACEMENT OF BIPAP MASK. DENIES OTHER NEEDS. CALL LIGHT WITHIN REACH.
--- NOTE | 2018-05-31 23:17 | NUR ---
REASSESSMENT COMPLETED PER FLOW SHEET, SEE FOR DETAILS. NO ACUTE DISTRESS NOTED. ON BIPAP AT 30%. CALL LIGHT WITHIN REACH. WILL CONTINUE TO MONITOR.
[2018-06-01] VITALS (13 sets, daily range): BP systolic 138–173; BP diastolic 45–102
--- NOTE | 2018-06-01 01:00 | NUR ---
RESTING, DENIES NEEDS, NO ACUTE DISTRESS NOTED. WILL CONTINUE TO MONITOR.
--- NOTE | 2018-06-01 03:17 | NUR ---
REASSESSMENT COMPLETED PER FLOW SHEET, SEE FOR DETAILS. NO ACUTE CHANGES NOTED. DENIES NEEDS. CALL LIGHT WITHIN REACH. WILL CONTINUE TO MONITOR.
--- NOTE | 2018-06-01 05:00 | NUR ---
DENIES NEEDS. NO ACUTE DISTRESS NOTED. CALL LIGHT WITHIN REACH.
[2018-06-01 05:48] LABS: BASOPHILS 0.1 % (0-2); EOSINOPHILS 4.1 % (0-7); HEMATOCRIT 32.1 % (42.0-54.0); HEMOGLOBIN 10.8 g/dL (13.5-17.5); IMMATURE GRANULOCYTES 0.3 % (0-5); LYMPHOCYTES 17.1 % (15-50); MCH 30.9 pg (26.0-34.0); MCHC 33.6 g/dL (31.0-37.0); MCV 91.7 fL (80.0-100.0); MEAN PLATELET VOLUME 9.4 fL (7.4-10.4); MONOCYTES 8.8 % (2-11); NEUTROPHILS 69.6 % (40-80); PLATELET COUNT 179 10x3/uL (130-400); RDW 13.6 % (11.5-14.5); WBC 7.8 10x3/uL (4.8-10.8)
[2018-06-01 05:56] LABS: ANION GAP 11.9 mmol/L (8-16); CARBON DIOXIDE 28.2 mmol/L (21.0-32.0); CREATININE - SERUM 4.1 mg/dL (0.6-1.3); PHOSPHOROUS 4.7 mg/dL (2.5-4.9)
[2018-06-01 06:04] LABS: POTASSIUM - SERUM 3.1 mmol/L (3.5-5.1)
--- NOTE | 2018-06-01 07:30 | NUR ---
R RADIAL WRIST PROTECTOR ON TO KEEP WRIST STRAIGHT. SMALL HEMATOMA NOTED. ALL PULSES PALPABLE. COLOR WNL. WILL CONT POC.
--- NOTE | 2018-06-01 07:56 | NUR ---
REPORT RECIEVED FROM THE OFF GOING RN. SEE ASSESSMENT IN THE PTS FLOW SHEET. DR WHEELER IN THE UNIT ALREADY ROUNDING. PT RESTIN WITH HIS EYES CLOSED ON THE BIPAP. VSS AT THIS TIME. SEE IV FLUIDS IN FLOW SHEET. CALL LIGHT IN REACH. WILL HOLD BREAKFAST ASIDE AND ALLOW THE PT TO REST. WILL CONT POC.
--- NOTE | 2018-06-01 08:04 | NUR ---
PT AWAKE. BREAKFAST TRAY PROVIDED FOR THE PT. PT ASKED "WHY AM I NOT GETTING BETTER." EXPLAINED TO THE PT WHAT HIS POC WAS AND THAT IT COULD BE A SLOW PROCESS AND THAT DR WHEELER IS TRYING TO PREVENT PERMANET DIALYSIS. PT REPLYED WITH "WELL IM ALL FUCKED UP". ENCOURAGED THE PT TO CON POC. CALL LIGHT IN REACH. VSS AT THIS TIME. WILLC ONT POC.
--- NOTE | 2018-06-01 09:02 | NUR ---
PHYSCIAL THEARAPY AT THE PT BEDSIDE AND ASSISTING THE PT OOB AND INTO HIS BEDSIDE CHAIR. PT CO PAIN TO HIS RIGHT FOOT. DR EDGAR SAMS PAGED.
--- NOTE | 2018-06-01 09:11 | NUR ---
FLAQUITA PAGED BACK AND I SPOKE WITH HER. THE PT DENIES TWISTING OR STRAINING OF HIS FOOT. "ALL I HAVE BEEN DOING IS LAYING ON MY ASS FOR THE PAST COUPLE OF DAYS. I DONT KNOW WHY IT WOULD BE HURTING BUT IT FEELS LIKE IT IS BROKEN." I EXPLAINED TO HALIE SAMS OF OUR CONVERSATION AND THAT THERE IS NO BRUSING, SWELLING, OR OBVIOUS SIGNS OF TRAUMA. SHE STATED SHE WILL COME BY AND LOOK AT HIS FOOT IN A BIT. SEE CHART FOR NEW ORDERS.
--- NOTE | 2018-06-01 09:25 | NUR ---
XRAY TECHS AT THE PTS BEDSIDE.
--- NOTE | 2018-06-01 10:00 | NUR ---
OFFERED PAIN MEDICATION FOR THE PT FOR HIS FOOT. PT REFUSED MEDICATION. "IT HURTS BUT NOT THAT BAD. I AM ABLE TO TOLERATE IT RIGHT NOW".
--- NOTE | 2018-06-01 11:14 | NUR ---
PROCESSING SPEC IN THE UNIT. ASSESSED THE PT. NO N.O AT THIS TIME.
--- NOTE | 2018-06-01 11:59 | NUR ---
PT NOT COMPLAINING OF PAIN BUT PT WHENEVER ASKED PT PAIN LVL 0-10, PT RATES PAIN 3. PT STILL REFUSING PAIN MEDICAITON.
--- NOTE | 2018-06-01 13:04 | NUR ---
REPORT CALLED TO PRECIOUS SCHULTZ ON MED 2.
--- NOTE | 2018-06-01 13:57 | NUR ---
ALL BELONINGS ACCOUNTED FOR. SLIGHTLY DELAY IN GETTING IN THE PTS ROOM DUE TO THE ROOM BEING CLEANED. PT TRANSFERED WITH ALL BELONINGS ACCOUTNED FOR. NO S/SX OF DISTERSS/DISCOMFORT NOTED. IN THE CARE NOW OF MED 2 NURSE.
--- NOTE | 2018-06-01 14:05 | NUR ---
RECEIVED TO ROOM 2136 PER W/C. PT UP IN BEDSIDE CHAIR AND NO REQUESTS MADE KNOWN. WILL CONTINUE POC.
--- NOTE | 2018-06-01 19:05 | NUR ---
AWAKE IN BED BED IS LOW AND CALL LIGHT IN PT HAND DENIES WANTS AND NEEDS AT THIS TIME. LUNGS DEMINISHEED BUT CLEAR SKIN WARM AND DRY BOWEL SOUNDS X4. IV SITES RT IJ TRIPLE LUMENSL RT AC. ALL WNL DRSG INTACT OVER IJ...DOBUTAMIN GTT AT 16.4. MEI TO GRAVITY AND SCD TO LEFT LG ONLY.
[2018-06-02] VITALS: BP 150/70
[2018-06-02 04:00] VITALS: BP 148/76
[2018-06-02 06:23] LABS: BASOPHILS 0.1 % (0-2); HEMATOCRIT 34.3 % (42.0-54.0); HEMOGLOBIN 11.5 g/dL (13.5-17.5); IMMATURE GRANULOCYTES 0.3 % (0-5); LYMPHOCYTES 18.2 % (15-50); MCHC 33.5 g/dL (31.0-37.0); MCV 92.5 fL (80.0-100.0); MEAN PLATELET VOLUME 9.5 fL (7.4-10.4); NEUTROPHILS 68.4 % (40-80); PLATELET COUNT 173 10x3/uL (130-400); RBC 3.71 10x6/uL (4.20-6.10); RDW 13.5 % (11.5-14.5); WBC 7.7 10x3/uL (4.8-10.8)
[2018-06-02 06:55] LABS: ANION GAP 14.2 mmol/L (8-16); CALCIUM 8.4 mg/dL (8.5-10.1); CARBON DIOXIDE 26.3 mmol/L (21.0-32.0); CREATININE - SERUM 4.9 mg/dL (0.6-1.3); MAGNESIUM - SERUM 2.5 mg/dL (1.8-2.4); POTASSIUM - SERUM 3.5 mmol/L (3.5-5.1)
[2018-06-02 06:56] LABS: PHOSPHOROUS 5.9 mg/dL (2.5-4.9)
[2018-06-02 08:00] VITALS: BP 156/82
[2018-06-02 12:00] VITALS: BP 139/86
--- NOTE | 2018-06-02 13:30 | NUR ---
Nutrition follow-up: Diet: low sodium - no renal restrictions at this time PO Intake 100% of most meals Labs reviewed Wt: 226# Will continue to provide food choices and honor food preferences within diet restrictions. RDN following.
--- NOTE | 2018-06-02 14:57 | EC ---
PATIENT:ISAIAH GRAF DATE OF SERVICE: 05/28/18 SEX: M MEDICAL RECORD: [id number] DATE OF : [birth year] LOCATION:D.M2 D.213 AGE OF PATIENT: 62 ADMISSION DATE: 05/28/18 REFERRING PHYSICIAN: INTERPRETING PHYSICIAN: RUDOLPH OLIVERA MD ECHOCARDIOGRAM REPORT ECHO CHARGES 4 ECHO COMPLETE Date: 05/28/18 CLINICAL DIAGNOSIS: INCREASED TROPNIN ECHOCARDIOGRAPHIC MEASUREMENTS (adult normal given) AC root (d.<3.7cm) 3.3 cm LV Septum d (<1.2 cm> 1.5 cm Valve Excursion 1.8 cm LV Septum (systole) 1.6 cm Left Atria (s.<4.0cm> 2.7 cm LVPW d(<1.2cm) 1.1 cm RV (d.<2.3cm) 2.4 cm LVPW (sytole) 1.6 cm LV diastole(<5.6CM) 6.5 cm MV E-F(>70mm/sec) cm LV systole 5.8 cm LVOT Diameter 1.3 cm MV exc.(>10mm) cm Est.ejection fraction (50-75%) % DOPPLER: LVIT cm/sec A 58 cm/sec E 87 cm/sec LA cm/sec RVSP 23.5 mmHg LVOT 64 cm/sec AOP1/2T m/s Asc. Ao 110 cm/sec RVOT 63 cm/sec RA cm/sec PA 58 cm/sec AV Gradient Peak 4.9 mmHg AV Mean 2.4 mmHg AV Area 0.7 cm MV Gradient Peak 4.3 mmHg MV Mean 2.2 mmHg MV Area cm COMMENTS: Manager Case: [facility] Airplane Designer: 1 Dr. Olivera TAPE# PACS Pericardial Effusion N DATE OF SERVICE: 05/28/2018 FINDINGS: 1. Left ventricular chamber size is dilated. Left ventricular systolic function is moderately reduced. Overall ejection fraction is 30%. 2. Left atrium, right atrium, and right ventricle chamber sizes are within normal limit. 3. Valvular structures have normal structure and motion. 4. Doppler interrogation reveals moderate mitral regurgitation and mild tricuspid regurgitation. No other valvular insufficiency or stenosis. ECHOCARDIOGRAM REPORT [id number] ISAIAH GRAF 5. No evidence of pericardial effusion or left ventricular thrombus. TRANSINT:[id number] Voice Confirmation ID: [id number] DOCUMENT ID: [id number] RUDOLPH OLIVERA MD at 1457 CC: [id number] DICTATION DATE: 05/29/18 1143 HUMAN RESOURCE ADVISOR: 05/29/18 1230 ADM IN [place] [id number] [place] [id number]
--- NOTE | 2018-06-02 14:57 | OP ---
PATIENT NAME: ISAIAH GRAF MEDICAL RECORD: [id number] :51 LOCATION:D.M2 D.2136 ADMISSION DATE:05/28/18 SURGEON: RUDOLPH FITZGERALD MD DATE OF OPERATION: 05/31/2018 DATE OF SERVICE: 05/31/2018 PROCEDURES: 1. PTCA stent left circumflex. 2. Left heart catheterization. 3. Selective coronary angiography. 4. Left ventriculogram. INDICATION: Angina and coronary artery disease. PROCEDURE IN DETAIL: After informed consent was obtained and after a detailed description of risks, benefits as well as alternative therapies, the patient elected to proceed with angiogram and angioplasty. The right radial area was prepped and draped in normal sterile fashion. Right radial artery was cannulated via modified Seldinger technique with placement of 6-Kazakh sheath. All catheters exchanged through this sheath. FINDINGS: Left ventriculogram was performed in standard 30-degree RUVALCABA view, reveals global hypokinesis, ejection fraction of 35%. SELECTIVE CORONARY ANGIOGRAPHY: 1. Left main is with no significant angiographic disease. 2. Left anterior descending has 95% stenosis in the mid vessel. 3. Left circumflex has 90% stenosis throughout the mid vessel. 4. Right coronary artery is chronically totally occluded. Distal right coronary fills via left to right collaterals. PTCA STENT OF THE LEFT CIRCUMFLEX: The stent used was a 2.75 x 26 and 3.0 x 22, both Integrity stents. Result was 0% residual stenosis. OVERALL IMPRESSION: Successful percutaneous transluminal coronary angioplasty stent of the left circumflex going from 90% initial stenosis to 0% residual. PLAN: PTCA stent of the LAD in the near future. TRANSINT:[id number] Voice Confirmation ID: [id number] DOCUMENT ID: [id number] RUDOLPH FITZGERALD MD at 1457 CC: [id number] DICTATION DATE: 05/31/18 1136 COMPOSITE MECHANIC: 05/31/18 1238 ADM IN [place] [id number] [place] [address]
--- NOTE | 2018-06-02 17:11 | NUR ---
PT IN DIALYSIS AT THIS TIME
--- NOTE | 2018-06-02 17:56 | NUR ---
Dialysis Coordinator: [facility] MWF 1st shift. ILAN PICKETT.
--- NOTE | 2018-06-02 18:07 | NUR ---
Dialysis Coordinator: Per renal progress notes, patient may possibly need long-term dialysis, however, the patient has not been receptive of this possibility (per Hammad's notes). Will follow up with renal on Tuesday am to see if any changes and/or obtain orders if placement is needed. ILAN PICKETT.
[2018-06-02 20:38] VITALS: BP 143/77
--- NOTE | 2018-06-03 | NUR ---
I have reviewed this patient and I concur with the Shift Assessment completed by the Licensed Practical Nurse today this shift.
--- NOTE | 2018-06-03 07:20 | NUR ---
RECIEVED BEDSIDE REPORT. AM ROUNDS COMPLETED. PT ON BI-PAP MACHINE ON ASSESSMENT THIS AM. RR EVEN AND UNLABORED. INTRODUCED MYSELF TO PT. PT DENIES ANY FURTHER NEEDS AT THIS TIME. WILL CPOC.
[2018-06-03 08:18] VITALS: BP 156/63
--- NOTE | 2018-06-03 09:00 | NUR ---
PT C/O NOT SEEING ANY DOCTOR. STATES HE WANT TO KNOW WHAT THE DOCTOR HAVE PLANNED FOR HIM. NOTIFIED PT THAT DOCTORS MAKE ROUNDS AND THEY WILL LET HIM KNOW WHAT PLAN THEY HAVE FOR HIM. PT STATES HE SLEPT WELL LAST NIGHT AND HE IS FEELING GOOD THIS MORNING. CL IN REACH, BED IN LOW.
[2018-06-03 12:04] LABS: BASOPHILS 0.2 % (0-2); EOSINOPHILS 2.7 % (0-7); HEMATOCRIT 32.5 % (42.0-54.0); HEMOGLOBIN 10.7 g/dL (13.5-17.5); IMMATURE GRANULOCYTES 0.3 % (0-5); LYMPHOCYTES 16.7 % (15-50); MCHC 32.9 g/dL (31.0-37.0); MCV 94.2 fL (80.0-100.0); MONOCYTES 8.7 % (2-11); NEUTROPHILS 71.4 % (40-80); PLATELET COUNT 201 10x3/uL (130-400); RBC 3.45 10x6/uL (4.20-6.10); RDW 13.5 % (11.5-14.5); WBC 8.8 10x3/uL (4.8-10.8)
[2018-06-03 12:09] LABS: ANION GAP 15.7 mmol/L (8-16); CALCIUM 8.2 mg/dL (8.5-10.1); CARBON DIOXIDE 26.4 mmol/L (21.0-32.0); CREATININE - SERUM 4.6 mg/dL (0.6-1.3); POTASSIUM - SERUM 4.1 mmol/L (3.5-5.1)
[2018-06-03 12:32] VITALS: BP 110/68
[2018-06-03 15:59] VITALS: BP 142/63
--- NOTE | 2018-06-03 17:58 | NUR ---
NOTIFIED DR SHAW ABOUT PT WANTING TO SEE HIS DR. DR SHAW STATES TO PUT IN A CONSULT TO DR HO. DR HO CONSULTED.
--- NOTE | 2018-06-03 19:30 | NUR ---
RECEIVED REPORT, WILL ASSUME CARE OF PT, PT IS TALKING ON HOME, DENIES ANY NEEDS AT THIS TIME, BED IS LOW, SRX2, CALL LIGHT IN REACH, WILL CONTINUE PLAN OF CARE
[2018-06-03 20:00] VITALS: BP 143/71
--- NOTE | 2018-06-03 21:09 | NUR ---
PT IS ON DOBUTREX DRIP, PLACED ON TELEMTRY
[2018-06-04] VITALS: BP 144/68
--- NOTE | 2018-06-04 02:55 | NUR ---
I have reviewed this patient and I concur with the Shift Assessment completed by the Licensed Practical Nurse today this shift.
[2018-06-04 04:00] VITALS: BP 134/72
[2018-06-04 05:37] LABS: BASOPHILS 0.4 % (0-2); EOSINOPHILS 3.8 % (0-7); HEMATOCRIT 33.9 % (42.0-54.0); HEMOGLOBIN 11.2 g/dL (13.5-17.5); IMMATURE GRANULOCYTES 0.6 % (0-5); LYMPHOCYTES 25.2 % (15-50); MCH 30.9 pg (26.0-34.0); MCV 93.6 fL (80.0-100.0); MEAN PLATELET VOLUME 9.7 fL (7.4-10.4); MONOCYTES 8.6 % (2-11); NEUTROPHILS 61.4 % (40-80); PLATELET COUNT 217 10x3/uL (130-400); RBC 3.62 10x6/uL (4.20-6.10); RDW 13.4 % (11.5-14.5); WBC 7.2 10x3/uL (4.8-10.8)
[2018-06-04 05:42] LABS: ANION GAP 14.7 mmol/L (8-16); CALCIUM 8.4 mg/dL (8.5-10.1); CARBON DIOXIDE 27.4 mmol/L (21.0-32.0); MAGNESIUM - SERUM 2.4 mg/dL (1.8-2.4); POTASSIUM - SERUM 4.1 mmol/L (3.5-5.1)
--- NOTE | 2018-06-04 06:40 | NUR ---
CHANGE DOBUTREX TO 14.9
[2018-06-04 09:00] VITALS: BP 130/63
--- NOTE | 2018-06-04 09:00 | NUR ---
RECIEVED BEDSIDE REPORT. AM ROUNDS COMPLETED. VSS, AAOX3, NO S/S OF RR DISTRESS, RR EVEN AND UNLABORED. DOBUTREX INFUSING @14.9. PT CURRENTLY ON BI-PAP MACHINE. DENIES ANY FURTHER NEEDS AT THIS TIME. WILL CPOC. CL IN REACH, BED IN LOW, SR UP X2.
--- NOTE | 2018-06-04 11:02 | NUR ---
PT C/O OF CONSTIPATION. STATES HE HAS NOT GONE TO THE BATHROOM IN DAYS. GREG BURTON NOTIFIED. WILLCTM.
--- NOTE | 2018-06-04 12:26 | NUR ---
JOSEPHINE PT PICKER ORDERED MIRALAX. MIRALAX GIVEN AT THIS TIME. PT DENIES ANY FURTHER NEEDS AT THIS TIME. WILL CTM.
[2018-06-04 12:41] VITALS: BP 135/76
[2018-06-04 16:25] VITALS: BP 138/77
--- NOTE | 2018-06-04 18:16 | NUR ---
PT PLACED ON NPO AFTER MIDNIGHT FOR HEMOSPLIT PLACEMENT. CONSENT SIGNED. WILL CPOC.
--- NOTE | 2018-06-04 18:56 | MORECARE ---
CASE MANAGEMENT DISCHARGE SUMMARY PATIENT: ISAIAH GRAF UNIT: [id number] ADM DATE: 05/28/18 AGE: 62 : 53 SEX: M ROOM/BED: D.2136 AUTHOR: LIZET,DOC PHYSICIAN: REFERRING PHYSICIAN: SILVINA CASTANO MD DATE OF SERVICE: 06/04/18 Discharge Plan Patient Name: ISAIAH GRAF Facility: [facility]:[place] : 1955 Planned Disposition: Home or Self Care Anticipated Discharge Date: Discharge Date: Expected LOS: Initial Reviewer: [email or web address] Initial Review Date: 05/28/2018 Generated: 06/04/18 7:55 pm Comments DCP- Discharge Planning Updated by [email or web address]: Sol Smiley on 06/04/18 5:[address] PATIENT FOR HEMOSPLIT CATHETER PLACEMENT ON TUESDAY. CM RECEIVED CONSULT TO PLAN FOR CHRONIC HEMODIALYSIS / CHAIR PLACEMENT. TC TO KASH ALEJANDRO, PATHWAYS COORDINATOR. LEFT VOICE MAIL. PATIENT WILL ALSO NEED UPDATE AND NOTIFICATION TO ARLEEN REGARDING CPAP SETTINGS AND ISSUES. HE WILL ALSO NEED ARRANGEMENTS FOR A NEBULIZER AND DUONEB . CHROME WORKER FORESTRY CREW CHIEF FOR DELIVERY AVAILABLE ON THE S. WILL F/U TUESDAY W/ [facility] FOR NEW PULMONARY ORDERS WITH APPROPRIATE STAFF. DCP- Discharge Planning Updated by [id number]: Noelle Sapp on 05/30/18 3:[address] Patient Name: ISAIAH GRAF Admission Status: ER Accout number: [id number] Admission Date: 05-28-2018 : 1955 Admission Diagnosis:ACUTE RESPIRATORY FAILURE WITH HYPOXIA Attending: Silvina Castano Current LOS: 2 Anticipated DC Date: Planned Disposition: Home or Self Care Primary Insurance: MEDICARE A & B Discharge Planning Comments: CM met with patient at bedside. Patient states he lives at home with is friend. He plans on returning to their home upon discharge. He states he feels safe at his home. He states he will have family drive him home upon discharge. Patient may need outpatient hemodialysis upon discharge set up in [place]. CM emailed Marie Gann of possibility of needing placement. Patient stated that he had been prescribed a medication and couldn't get it filled because of cost 250.00. CM contacted patients pharmacy [phone]. Pharmacist stated the drug was BIDIL (hydralazine and Isorbide dinitrate) combination drug and not covered on patients formulary. CM will continue to follow and assist as needed with discharge planning / needs. Plastic Sewer: Noelle Sapp DCPIA - Discharge Planning Initial Assessment Updated by [email or web address]: Noelle Sapp on 05/30/18 4:12 pm * Is the patient Alert and Oriented? Yes * How many steps to enter\exit or inside your home? * PCP Andrew Mcclure * Pharmacy [facility] [phone] * Preadmission Environment Home with Family * ADLs Independent * Equipment None * List name and contact numbers for known caregivers / representatives who currently or will assist patient after discharge: Franklin Graf - renita [phone] * Verbal permission to speak to the caregivers and representatives has been obtained from the patient. Yes * Community resources currently utilized None * Additional services required to return to the preadmission environment? No * Can the patient safely return to the preadmission environment? Yes * Has this patient been hospitalized within the prior 30 days at any hospital? No Last DP export: 05/30/18 3:26 p Patient Name: ISAIAH GRAF Page 38937 at 1856 All edits/amendments must be made on the electronic document DICTATION DATE: 06/04/181854 CARBON COATING MACHINE OPERATOR: REG 06/04/181854 RPT#: [id number] DC DATE: STATUS: ADM IN [facility] [address] [place] [address] END OF REPORT
--- NOTE | 2018-06-04 19:31 | NUR ---
RECEIVED REPORT, WILL ASSUME CARE OF PT, DENIES ANY NEEDS AT THIS TIME,BED IS LOW, SRX2, CALL LIGHT IN REACH, EXPLAIN HE WILL BE NPO AFTER MIDNIGHT, WILL ASSUME CARE OF PT
[2018-06-04 20:26] VITALS: BP 138/75
[2018-06-05 01:37] VITALS: BP 150/82
--- NOTE | 2018-06-05 01:51 | NUR ---
I have reviewed this patient and I concur with the Shift Assessment completed by the Licensed Practical Nurse today this shift.
[2018-06-05 05:31] VITALS: BP 146/75
--- NOTE | 2018-06-05 06:08 | NUR ---
AJUSTED DOBUTREX DRIP TO 15 PER WT
[2018-06-05 06:17] LABS: BASOPHILS 0.3 % (0-2); EOSINOPHILS 3.8 % (0-7); HEMATOCRIT 31.3 % (42.0-54.0); HEMOGLOBIN 10.3 g/dL (13.5-17.5); IMMATURE GRANULOCYTES 0.5 % (0-5); LYMPHOCYTES 25.6 % (15-50); MCH 30.7 pg (26.0-34.0); MCHC 32.9 g/dL (31.0-37.0); MCV 93.2 fL (80.0-100.0); MEAN PLATELET VOLUME 9.7 fL (7.4-10.4); MONOCYTES 10.3 % (2-11); NEUTROPHILS 59.5 % (40-80); PLATELET COUNT 193 10x3/uL (130-400); RBC 3.36 10x6/uL (4.20-6.10); RDW 13.4 % (11.5-14.5); WBC 6.4 10x3/uL (4.8-10.8)
[2018-06-05 06:22] LABS: ANION GAP 16.2 mmol/L (8-16); CALCIUM 8.3 mg/dL (8.5-10.1); CARBON DIOXIDE 24.5 mmol/L (21.0-32.0); CREATININE - SERUM 5.1 mg/dL (0.6-1.3); MAGNESIUM - SERUM 2.5 mg/dL (1.8-2.4); POTASSIUM - SERUM 4.7 mmol/L (3.5-5.1)
--- NOTE | 2018-06-05 08:00 | NUR ---
RECIEVED BEDSIDE REPORT. AM ROUNDS COMPLETED. PT AAOX4, VVS, NO S/S OF RR DISTRESS. DR WHEELER IN PT'S ROOM. ORDERED FOR MEI TO BE DC'D. PROVIDER ALSO STATES PT WILL NOT BE GOING FOR DIALYSIS THIS AM. NPO STATUS DC'D. FOOD ORDERED FOR PT. AM MEDS GIVEN. WILL CPOC. CL IN REACH, BED IN LOW, SR UP X2.
--- NOTE | 2018-06-05 08:09 | NUR ---
PT MEI REMOVED PER PROVIDERS ORDER. PT TOLERATE WELL. WILL START 24HR URINE THIS AM, COLLECTION CUP SET UP AT PT BEDSIDE. WILL CPOC. CL IN REACH, BED IN LOW. SR UP X2.
[2018-06-05 08:23] VITALS: BP 125/81
--- NOTE | 2018-06-05 11:51 | NUR ---
PT UP AND WALKING WITH PT. WILL CPOC.
[2018-06-05 11:52] VITALS: BP 130/64
--- NOTE | 2018-06-05 14:07 | NUR ---
Nutrition follow-up: surgery cancelled for today Diet advanced to low sodium Pts po intake has been ~75-100% of meals Labs reviewed Wt: 220# RDN following.
--- NOTE | 2018-06-05 15:32 | MORECARE ---
CASE MANAGEMENT DISCHARGE SUMMARY PATIENT: ISAIAH GRAF UNIT: [id number] ADM DATE: 05/28/18 AGE: 62 : 53 SEX: M ROOM/BED: D.2136 AUTHOR: LIZET,DOC PHYSICIAN: REFERRING PHYSICIAN: SILVINA CASTANO MD DATE OF SERVICE: 06/05/18 Discharge Plan Patient Name: ISAIAH GRAF Facility: [facility]:[place] : 1955 Planned Disposition: Home or Self Care Anticipated Discharge Date: Discharge Date: Expected LOS: Initial Reviewer: [email or web address] Initial Review Date: 05/28/2018 Generated: 06/05/18 4:32 pm Comments DCP- Discharge Planning Updated by [email or web address]: Sol Smiley on 06/04/18 5:[address] PATIENT FOR HEMOSPLIT CATHETER PLACEMENT ON TUESDAY. CM RECEIVED CONSULT TO PLAN FOR CHRONIC HEMODIALYSIS / CHAIR PLACEMENT. TC TO KASH ALEJANDRO, PATHWAYS COORDINATOR. LEFT VOICE MAIL. PATIENT WILL ALSO NEED UPDATE AND NOTIFICATION TO ARLEEN REGARDING CPAP SETTINGS AND ISSUES. HE WILL ALSO NEED ARRANGEMENTS FOR A NEBULIZER AND DUONEB . EMERGENCY DEPARTMENT NURSE PLANT WIRE CHIEF FOR DELIVERY AVAILABLE ON THE S. WILL F/U TUESDAY W/ [facility] FOR NEW PULMONARY ORDERS WITH APPROPRIATE STAFF. DCP- Discharge Planning Updated by [id number]: Noelle Sapp on 05/30/18 3:[address] Patient Name: ISAIAH GRAF Admission Status: ER Accout number: [id number] Admission Date: 05-28-2018 : 1955 Admission Diagnosis:ACUTE RESPIRATORY FAILURE WITH HYPOXIA Attending: Silvina Castano Current LOS: 2 Anticipated DC Date: Planned Disposition: Home or Self Care Primary Insurance: MEDICARE A & B Discharge Planning Comments: CM met with patient at bedside. Patient states he lives at home with is friend. He plans on returning to their home upon discharge. He states he feels safe at his home. He states he will have family drive him home upon discharge. Patient may need outpatient hemodialysis upon discharge set up in [place]. CM emailed Marie Gann of possibility of needing placement. Patient stated that he had been prescribed a medication and couldn't get it filled because of cost 250.00. CM contacted patients pharmacy [phone]. Pharmacist stated the drug was BIDIL (hydralazine and Isorbide dinitrate) combination drug and not covered on patients formulary. CM will continue to follow and assist as needed with discharge planning / needs. Associate Faculty: Noelle Sapp DCPIA - Discharge Planning Initial Assessment Updated by [email or web address]: Noelle Sapp on 05/30/18 4:12 pm * Is the patient Alert and Oriented? Yes * How many steps to enter\exit or inside your home? * PCP Andrew Mcclure * Pharmacy [facility] [phone] * Preadmission Environment Home with Family * ADLs Independent * Equipment None * List name and contact numbers for known caregivers / representatives who currently or will assist patient after discharge: Franklin maravilla [phone] * Verbal permission to speak to the caregivers and representatives has been obtained from the patient. Yes * Community resources currently utilized None * Additional services required to return to the preadmission environment? No * Can the patient safely return to the preadmission environment? Yes * Has this patient been hospitalized within the prior 30 days at any hospital? No External Providers External Provider: Juli Next Contact Date: 06/05/2018 Service Request Date: Service Type: Resolution: Reviewer: Comments: Coverage Notice Reviewer: [id number] - Sylvester Hickman Notice Issued Date-Time: 06/05/2018 12:40 Notice Type: Patient Choice Letter Notice Delivered To: Patient Relationship to Patient: Commercial Hvac Technician Name: Delivery Method: HAND - Hand Delivered Gina Days: Prior Verbal Notification: Recipient Understood Notice: Yes Recipient Signature: Yes Med Rec Note Co-signed by Attending: Coverage Notice Comment: JUS LANZA Last DP export: 06/04/18 5:55 p Patient Name: ISAIAH GRAF Page 56462 at 1532 All edits/amendments must be made on the electronic document DICTATION DATE: 06/05/181531 TRANSFER CAR OPERATOR: REG 06/05/181531 RPT#: [id number] CT DATE: STATUS: ADM IN [facility] [address] [place] [address] END OF REPORT
--- NOTE | 2018-06-05 15:42 | MORECARE ---
CASE MANAGEMENT DISCHARGE SUMMARY PATIENT: ISAIAH GRAF UNIT: [id number] ADM DATE: 05/28/18 AGE: 62 : 53 SEX: M ROOM/BED: D.2136 AUTHOR: LIZET,DOC PHYSICIAN: REFERRING PHYSICIAN: SILVINA CASTANO MD DATE OF SERVICE: 06/05/18 Discharge Plan Patient Name: ISAIAH GRAF Facility: [facility]:[place] : 1955 Planned Disposition: Home or Self Care Anticipated Discharge Date: Discharge Date: Expected LOS: Initial Reviewer: [email or web address] Initial Review Date: 05/28/2018 Generated: 06/05/18 4:42 pm Comments DCP- Discharge Planning Updated by [id number]: Sylvester Hickman on 06/05/18 2:[address] Patient Name: ISAIAH GRAF Encounter No: [id number] : 1955 Primary Insurance: MEDICARE A & B Anticipated DC Date: Planned Disposition: Home or Self Care DCP follow-up note: CM RECEIVED ORDER FOR NEBULIZER, NEBULIZER MEDICATIONS, DOWNLOAD HOME CPAP MEMORY CHIP TO CHECK FOR COMPLIANCE AND ORDER FOR OUTPATIENT DIALYSIS CLINIC ARRANGMENT. CM MET WITH PT IN ROOM TO DISCUSS ORDERS AND NEEDS. PT COMPLETING MEETING WITH PATIENT PATHWAYS COORDINATOR MARIA D MONSON WHO WILL ARRANGE OUTPATIENT DIALYSIS CLINIC IF NEEDED, PT IS HOPEFUL HE WILL NOT REQUIRE OUTPATIENT DIALYSIS BUT WILL ACCEPT THE SERVICES IF THEY ARE NEEDED. CM PROVIDED PT WITH LISTING OF MEDICAL EQUIPMENT PROVIDERS, PT WANTS TO USE [facility] IN [place] WHERE HE RECEIVED HIS HOME CPAP. CHOICE SIGNED. PT DENIES FURHTER NEEDS, PLANS TO DRIVE HIMSELF TO AND FROM DIALYSIS IF HE NEEDS OUTPATIENT DIALYSIS AND WILL CALL FAMILY TO PICK HIM UP FOR DISHCHARGE HOME. IMPORTANT MESSAGE FROM MEDICARE PROVIDED AND EXPLAINED. CM CALLED [facility] IN [place], , SPOKE TO ARNEL WHO REPORTS PT IS INACTIVE WITH THEM, RECEIVED CPAP 4 YEARS AGO. CM REVIEWED ORDERS, DOCTORS NOTES AND TESTING RESULTS. ARNEL WILL REACTIVATE PT'S FILE AND WILL PROCESS ORDER FOR NEBULIZER, MEDICATIONS FOR NEBULIZER AND SCHEDULE DOWNLOAD OF CPAP MEMORY IF THE CHIP IS IN PLACE IT HAS NOT BEEN DOWNLOADING AUTOMATICALLY. CM FAXED REFERRAL AND SUPPORTING DOCUMENTATION TO [facility] AT [phone]. [facility] TO FAX ANY REQUIRED ORDERS FOR DOCTORS SIGNATURE TO CM. ONCE SIGNED ORDERS ARE RECEIVED, WILL PROCESS ORDERS FOR DELIVERY AND CPAP MEMORY DOWNLOAD. CM TO CONTINUE TO FOLLOW AND ASSIST NEEDED. Sylvester Hickman, CASE MANAGEMENT DCP- Discharge Planning Updated by [id number]: Sol Smiley on 06/04/18 5:[address] PATIENT FOR HEMOSPLIT CATHETER PLACEMENT ON TUESDAY. CM RECEIVED CONSULT TO PLAN FOR CHRONIC HEMODIALYSIS / CHAIR PLACEMENT. TC TO KASH ALEJANDRO, PATHWAYS COORDINATOR. LEFT VOICE MAIL. PATIENT WILL ALSO NEED UPDATE AND NOTIFICATION TO ARLEEN REGARDING CPAP SETTINGS AND ISSUES. HE WILL ALSO NEED ARRANGEMENTS FOR A NEBULIZER AND DUONEB . EMPLOYMENT TRAINING SPECIALIST CATERING AND EVENTS MANAGER FOR DELIVERY AVAILABLE ON THE WEEKENDS. WILL F/U TUESDAY W/ [facility] FOR NEW PULMONARY ORDERS WITH APPROPRIATE STAFF. DCP- Discharge Planning Updated by [id number]: Noelle Sapp on 05/30/18 3:[address] Patient Name: ISAIAH GRAF Admission Status: ER Accout number: [id number] Admission Date: 05-28-2018 : 1955 Admission Diagnosis:ACUTE RESPIRATORY FAILURE WITH HYPOXIA Attending: Silvina Castano Current LOS: 2 Anticipated DC Date: Planned Disposition: Home or Self Care Primary Insurance: MEDICARE A & B Discharge Planning Comments: CM met with patient at bedside. Patient states he lives at home with is friend. He plans on returning to their home upon discharge. He states he feels safe at his home. He states he will have family drive him home upon discharge. Patient may need outpatient hemodialysis upon discharge set up in [place]. CM emailed Maria D Monson of possibility of needing placement. Patient stated that he had been prescribed a medication and couldn't get it filled because of cost 250.00. CM contacted patients pharmacy [phone]. Pharmacist stated the drug was BIDIL (hydralazine and Isorbide dinitrate) combination drug and not covered on patients formulary. CM will continue to follow and assist as needed with discharge planning / needs. Face Burler: Noelle Sapp DCPIA - Discharge Planning Initial Assessment Updated by [id number]: Noelle Sapp on 05/30/18 4:12 pm * Is the patient Alert and Oriented? Yes * How many steps to enter\exit or inside your home? * PCP Andrew Mcclure * Pharmacy [facility] [phone] * Preadmission Environment Home with Family * ADLs Independent * Equipment None * List name and contact numbers for known caregivers / representatives who currently or will assist patient after discharge: Franklin maravilla - [phone] * Verbal permission to speak to the caregivers and representatives has been obtained from the patient. Yes * Community resources currently utilized None * Additional services required to return to the preadmission environment? No * Can the patient safely return to the preadmission environment? Yes * Has this patient been hospitalized within the prior 30 days at any hospital? No Coverage Notice Reviewer: [id number] Hickman Notice Issued Date-Time: 06/05/2018 12:40 Notice Type: Patient Choice Letter Notice Delivered To: Patient Relationship to Patient: Nursery Hand Name: Delivery Method: HAND - Hand Delivered Gina Days: Prior Verbal Notification: Recipient Understood Notice: Yes Recipient Signature: Yes Med Rec Note Co-signed by Attending: Coverage Notice Comment: [facility] Marleny LANZA Reviewer: OLIVERIO Hickman Notice Issued Date-Time: 06/05/2018 12:40 Notice Type: IM Discharge Notice Notice Delivered To: Patient Relationship to Patient: Nursery Hand Name: Delivery Method: HAND - Hand Delivered Gina Days: Prior Verbal Notification: Recipient Understood Notice: Yes Recipient Signature: Yes Med Rec Note Co-signed by Attending: Coverage Notice Comment: Last DP export: 06/05/18 2:32 p Patient Name: ISAIAH GRAF Page 23582 at 1542 All edits/amendments must be made on the electronic document DICTATION DATE: 06/05/18 1541 PACKAGING SALES CONSULTANT: REG 06/05/18 1541 RPT#: [id number] DC DATE: STATUS: ADM IN [facility] [address] [place] [address] END OF REPORT
[2018-06-05 17:17] VITALS: BP 139/64
[2018-06-05 20:00] VITALS: BP 131/81
--- NOTE | 2018-06-05 23:30 | NUR ---
REPORT RECIEVED AND ROUNDING COMPLETE. PT LAYING IN SUPINE POSTION AT A 35. PT HAS BIPAP MACHINE GROVER DN RUNNING AT 30%. PT EYES ARE CLOSED. PT IS BREATHING EVEN. CALL LIGHT WITHIN REACH.
[2018-06-06] VITALS: BP 137/73
--- NOTE | 2018-06-06 03:43 | NUR ---
PATIENT RESTING COMFORTABLY IN BED. RESPIRATIONS ARE EVEN AND UNLABORED. NO S/S OF DISTRESS. CALL LIGHT WITHIN REACH. WILL CPOC.
[2018-06-06 04:20] VITALS: BP 143/84
[2018-06-06 05:41] LABS: INR 1.1 (0.85-1.17); PROTIME 13.7 SECONDS (11.6-15.0)
[2018-06-06 05:42] LABS: BASOPHILS 0.3 % (0-2); HEMATOCRIT 30.1 % (42.0-54.0); HEMOGLOBIN 9.8 g/dL (13.5-17.5); IMMATURE GRANULOCYTES 0.4 % (0-5); LYMPHOCYTES 28.4 % (15-50); MCH 30.5 pg (26.0-34.0); MCHC 32.6 g/dL (31.0-37.0); MCV 93.8 fL (80.0-100.0); MEAN PLATELET VOLUME 9.5 fL (7.4-10.4); MONOCYTES 8.4 % (2-11); NEUTROPHILS 58.5 % (40-80); PLATELET COUNT 194 10x3/uL (130-400); RBC 3.21 10x6/uL (4.20-6.10); RDW 13.2 % (11.5-14.5)
[2018-06-06 05:44] LABS: CARBON DIOXIDE 23.9 mmol/L (21.0-32.0); CREATININE - SERUM 5.3 mg/dL (0.6-1.3); MAGNESIUM - SERUM 2.3 mg/dL (1.8-2.4); PHOSPHOROUS 6.2 mg/dL (2.5-4.9); POTASSIUM - SERUM 4.9 mmol/L (3.5-5.1)
[2018-06-06] MEDS ORDERED: COREG12.5 MG PO (07:26)
[2018-06-06] MEDS ORDERED: ASPIRIN81 MG PO (07:26)
[2018-06-06] MEDS ORDERED: NORVASC5 MG PO (07:26)
[2018-06-06] MEDS ORDERED: PLAVIX75 MG PO (07:26)
[2018-06-06] MEDS ORDERED: LASIX40 MG PO (07:28)
[2018-06-06 08:35] VITALS: BP 104/68
--- NOTE | 2018-06-06 09:05 | NUR ---
DOBUTAMINE GTT DC ORDERED.
--- NOTE | 2018-06-06 10:23 | MORECARE ---
CASE MANAGEMENT DISCHARGE SUMMARY PATIENT: ISAIAH GRAF UNIT: [id number] ADM DATE: 05/28/18 AGE: 62 : 51 SEX: M ROOM/BED: D.2136 AUTHOR: LIZETDOC PHYSICIAN: REFERRING PHYSICIAN: SILVINA CASTANO MD DATE OF SERVICE: 06/06/18 Discharge Plan Patient Name: ISAIAH GRAF Facility: [facility]:[place] : 1955 Planned Disposition: Home or Self Care Anticipated Discharge Date: 06/06/18 Discharge Date: Expected LOS: 9 Initial Reviewer: [id number] Initial Review Date: 05/28/2018 Generated: 06/06/18 11:22 am Comments DCP- Discharge Planning Updated by [id number]: Sylvester Hickman on 06/06/18 9:[address] Patient Name: ISAIAH GRAF Encounter No: [id number] : 1955 Primary Insurance: MEDICARE A & B Anticipated DC Date: 06-06-2018 Planned Disposition: Home or Self Care DCP follow-up note: CM FAXED SIGNED ORDER TO [facility] AT [phone]. CM CALLED [facility] IN [place], , SPOKE TO ARNEL WHO RECEIVED SIGNED ORDER. ARNEL WILL REACTIVATE PT'S FILE AND WILL ARRANGE HOME DELIVERY OF NEBULIZER, MEDICATIONS FOR NEBULIZER AND SCHEDULE DOWNLOAD OF CPAP MEMORY IF THE CHIP. PT NOTIFIED OF COPAY OF $29.86, PT IN AGREEMENT AND CAN PAY THE COPAY ON HOME DELIVERY. CM DISCUSSED AVAILABILITY OF HOME HEALTH, REHAB SERVICES AND MEDICAL EQUIPMENT. PT DENIES DISCHARGE NEEDS. PT'S SON TO TRANSPORT HOME AT DISCHARGE TODAY. FILM PROCESSOR NOTIFIED. Sylvester Hickman, CASE MANAGEMENT DCP- Discharge Planning Updated by [id number]: Sylvester Hickman on 06/05/18 2:[address] Patient Name: ISAIAH GRAF Encounter No: [id number] : 1955 Primary Insurance: MEDICARE A & B Anticipated DC Date: Planned Disposition: Home or Self Care DCP follow-up note: CM RECEIVED ORDER FOR NEBULIZER, NEBULIZER MEDICATIONS, DOWNLOAD HOME CPAP MEMORY CHIP TO CHECK FOR COMPLIANCE AND ORDER FOR OUTPATIENT DIALYSIS CLINIC ARRANGMENT. CM MET WITH PT IN ROOM TO DISCUSS ORDERS AND NEEDS. PT COMPLETING MEETING WITH PATIENT PATHWAYS COORDINATOR MARIA D MONSON WHO WILL ARRANGE OUTPATIENT DIALYSIS CLINIC IF NEEDED, PT IS HOPEFUL HE WILL NOT REQUIRE OUTPATIENT DIALYSIS BUT WILL ACCEPT THE SERVICES IF THEY ARE NEEDED. CM PROVIDED PT WITH LISTING OF MEDICAL EQUIPMENT PROVIDERS, PT WANTS TO USE [facility] IN [place] WHERE HE RECEIVED HIS HOME CPAP. CHOICE SIGNED. PT DENIES FURHTER NEEDS, PLANS TO DRIVE HIMSELF TO AND FROM DIALYSIS IF HE NEEDS OUTPATIENT DIALYSIS AND WILL CALL FAMILY TO PICK HIM UP FOR DISHCHARGE HOME. IMPORTANT MESSAGE FROM MEDICARE PROVIDED AND EXPLAINED. CM CALLED [facility] IN [place], , SPOKE TO ARNEL WHO REPORTS PT IS INACTIVE WITH THEM, RECEIVED CPAP 4 YEARS AGO. CM REVIEWED ORDERS, DOCTORS NOTES AND TESTING RESULTS. ARNEL WILL REACTIVATE PT'S FILE AND WILL PROCESS ORDER FOR NEBULIZER, MEDICATIONS FOR NEBULIZER AND SCHEDULE DOWNLOAD OF CPAP MEMORY IF THE CHIP IS IN PLACE IT HAS NOT BEEN DOWNLOADING AUTOMATICALLY. CM FAXED REFERRAL AND SUPPORTING DOCUMENTATION TO [facility] AT [phone]. [facility] TO FAX ANY REQUIRED ORDERS FOR DOCTORS SIGNATURE TO CM. ONCE SIGNED ORDERS ARE RECEIVED, WILL PROCESS ORDERS FOR DELIVERY AND CPAP MEMORY DOWNLOAD. CM TO CONTINUE TO FOLLOW AND ASSIST NEEDED. Sylvester Hickman, CASE MANAGEMENT DCP- Discharge Planning Updated by [id number]: Sol Smiley on 06/04/18 5:[address] PATIENT FOR HEMOSPLIT CATHETER PLACEMENT ON TUESDAY. CM RECEIVED CONSULT TO PLAN FOR CHRONIC HEMODIALYSIS / CHAIR PLACEMENT. TC TO KASH ALEJANDRO, PATHWAYS COORDINATOR. LEFT VOICE MAIL. PATIENT WILL ALSO NEED UPDATE AND NOTIFICATION TO ARLEEN REGARDING CPAP SETTINGS AND ISSUES. HE WILL ALSO NEED ARRANGEMENTS FOR A NEBULIZER AND DUONEB . DISTILLERY WORKER GENERAL SPOOL WINDER FOR DELIVERY AVAILABLE ON THE WEEKENDS. WILL F/U TUESDAY W/ [facility] FOR NEW PULMONARY ORDERS WITH APPROPRIATE STAFF. DCP- Discharge Planning Updated by [id number]: Noelle Sapp on 05/30/18 3:[address] Patient Name: ISAIAH GRAF Admission Status: ER Accout number: [id number] Admission Date: 05-28-2018 : 1955 Admission Diagnosis:ACUTE RESPIRATORY FAILURE WITH HYPOXIA Attending: Silvina Castano Current LOS: 2 Anticipated DC Date: Planned Disposition: Home or Self Care Primary Insurance: MEDICARE A & B Discharge Planning Comments: CM met with patient at bedside. Patient states he lives at home with is friend. He plans on returning to their home upon discharge. He states he feels safe at his home. He states he will have family drive him home upon discharge. Patient may need outpatient hemodialysis upon discharge set up in [place]. CM emailed Maria D Monson of possibility of needing placement. Patient stated that he had been prescribed a medication and couldn't get it filled because of cost 250.00. CM contacted patients pharmacy [phone]. Pharmacist stated the drug was BIDIL (hydralazine and Isorbide dinitrate) combination drug and not covered on patients formulary. CM will continue to follow and assist as needed with discharge planning / needs. Biodiesel Processing Technician: Noelle Sapp [id number] - Discharge Planning Initial Assessment Updated by [id number]: Noelle Sapp on 05/30/18 4:12 pm * Is the patient Alert and Oriented? Yes * How many steps to enter\exit or inside your home? * PCP Andrew Mcclure * Pharmacy [facility] [phone] * Preadmission Environment Home with Family * ADLs Independent * Equipment None * List name and contact numbers for known caregivers / representatives who currently or will assist patient after discharge: Franklin maravilla [phone] * Verbal permission to speak to the caregivers and representatives has been obtained from the patient. Yes * Community resources currently utilized None * Additional services required to return to the preadmission environment? No * Can the patient safely return to the preadmission environment? Yes * Has this patient been hospitalized within the prior 30 days at any hospital? No Coverage Notice Reviewer: [id number] Marleny Hickman Notice Issued Date-Time: 06/05/2018 12:40 Notice Type: Patient Choice Letter Notice Delivered To: Patient Relationship to Patient: Wrapper Sorter Name: Delivery Method: HAND - Hand Delivered Gina Days: Prior Verbal Notification: Recipient Understood Notice: Yes Recipient Signature: Yes Med Rec Note Co-signed by Attending: Coverage Notice Comment: [facility] Reviewer: [id number] Marleny Hickman Notice Issued Date-Time: 06/05/2018 12:40 Notice Type: IM Discharge Notice Notice Delivered To: Patient Relationship to Patient: Wrapper Sorter Name: Delivery Method: HAND - Hand Delivered Gina Days: Prior Verbal Notification: Recipient Understood Notice: Yes Recipient Signature: Yes Med Rec Note Co-signed by Attending: Coverage Notice Comment: Last DP export: 06/05/18 2:42 p Patient Name: ISAIAH GRAF Page 07703 at 1023 All edits/amendments must be made on the electronic document DICTATION DATE: 06/06/18 1022 CAMPAIGN MANAGEMENT SENIOR MANAGER: REG 06/06/18 1022 RPT#: [id number] DC DATE: STATUS: ADM IN [facility] [address] [place] [address] END OF REPORT
--- NOTE | 2018-06-06 10:33 | MORECARE ---
CASE MANAGEMENT DISCHARGE SUMMARY PATIENT: ISAIAH GRAF UNIT: [id number] ADM DATE: 05/28/18 AGE: 62 : 53 SEX: M ROOM/BED: D.2136 AUTHOR: LIZETDOC PHYSICIAN: REFERRING PHYSICIAN: SILVINA CASTANO MD DATE OF SERVICE: 06/06/18 Discharge Plan Patient Name: ISAIAH GRAF Facility: [facility]:[place] : 1955 Planned Disposition: Home or Self Care Anticipated Discharge Date: 06/06/18 Discharge Date: Expected LOS: 9 Initial Reviewer: [id number] Initial Review Date: 05/28/2018 Generated: 06/06/18 11:33 am Comments DCP- Discharge Planning Updated by [id number]: Sylvester Hickman on 06/06/18 9:[address] Patient Name: ISAIAH GRAF Encounter No: [id number] : 1955 Primary Insurance: MEDICARE A & B Anticipated DC Date: 06-06-2018 Planned Disposition: Home or Self Care DCP follow-up note: CM FAXED SIGNED ORDER TO [facility] AT [phone]. CM CALLED [facility] IN [place], , SPOKE TO ARNEL WHO RECEIVED SIGNED ORDER. ARNEL WILL REACTIVATE PT'S FILE AND WILL ARRANGE HOME DELIVERY OF NEBULIZER, MEDICATIONS FOR NEBULIZER AND SCHEDULE DOWNLOAD OF CPAP MEMORY IF THE CHIP. PT NOTIFIED OF COPAY OF $29.86, PT IN AGREEMENT AND CAN PAY THE COPAY ON HOME DELIVERY. CM DISCUSSED AVAILABILITY OF HOME HEALTH, REHAB SERVICES AND MEDICAL EQUIPMENT. PT DENIES DISCHARGE NEEDS. PT'S SON TO TRANSPORT HOME AT DISCHARGE TODAY. AIRLINE FLIGHT ATTENDANT NOTIFIED. Sylvester Hickman, CASE MANAGEMENT DCP- Discharge Planning Updated by [email or web address]: Sylvester Hickman on 06/05/18 2:[address] Patient Name: ISAIAH GRAF Encounter No: [id number] : 1955 Primary Insurance: MEDICARE A & B Anticipated DC Date: Planned Disposition: Home or Self Care DCP follow-up note: CM RECEIVED ORDER FOR NEBULIZER, NEBULIZER MEDICATIONS, DOWNLOAD HOME CPAP MEMORY CHIP TO CHECK FOR COMPLIANCE AND ORDER FOR OUTPATIENT DIALYSIS CLINIC ARRANGMENT. CM MET WITH PT IN ROOM TO DISCUSS ORDERS AND NEEDS. PT COMPLETING MEETING WITH PATIENT PATHWAYS COORDINATOR MARIA D MONSON WHO WILL ARRANGE OUTPATIENT DIALYSIS CLINIC IF NEEDED, PT IS HOPEFUL HE WILL NOT REQUIRE OUTPATIENT DIALYSIS BUT WILL ACCEPT THE SERVICES IF THEY ARE NEEDED. CM PROVIDED PT WITH LISTING OF MEDICAL EQUIPMENT PROVIDERS, PT WANTS TO USE [facility] IN [place] WHERE HE RECEIVED HIS HOME CPAP. CHOICE SIGNED. PT DENIES FURHTER NEEDS, PLANS TO DRIVE HIMSELF TO AND FROM DIALYSIS IF HE NEEDS OUTPATIENT DIALYSIS AND WILL CALL FAMILY TO PICK HIM UP FOR DISHCHARGE HOME. IMPORTANT MESSAGE FROM MEDICARE PROVIDED AND EXPLAINED. CM CALLED [facility] IN [place], , SPOKE TO ARNEL WHO REPORTS PT IS INACTIVE WITH THEM, RECEIVED CPAP 4 YEARS AGO. CM REVIEWED ORDERS, DOCTORS NOTES AND TESTING RESULTS. ARNEL WILL REACTIVATE PT'S FILE AND WILL PROCESS ORDER FOR NEBULIZER, MEDICATIONS FOR NEBULIZER AND SCHEDULE DOWNLOAD OF CPAP MEMORY IF THE CHIP IS IN PLACE IT HAS NOT BEEN DOWNLOADING AUTOMATICALLY. CM FAXED REFERRAL AND SUPPORTING DOCUMENTATION TO [facility] AT [phone]. [facility] TO FAX ANY REQUIRED ORDERS FOR DOCTORS SIGNATURE TO CM. ONCE SIGNED ORDERS ARE RECEIVED, WILL PROCESS ORDERS FOR DELIVERY AND CPAP MEMORY DOWNLOAD. CM TO CONTINUE TO FOLLOW AND ASSIST NEEDED. Sylvester Hickman, CASE MANAGEMENT DCP- Discharge Planning Updated by [id number]: Sol Smiley on 06/04/18 5:[address] PATIENT FOR HEMOSPLIT CATHETER PLACEMENT ON TUESDAY. CM RECEIVED CONSULT TO PLAN FOR CHRONIC HEMODIALYSIS / CHAIR PLACEMENT. TC TO KASH ALEJANDRO, PATHWAYS COORDINATOR. LEFT VOICE MAIL. PATIENT WILL ALSO NEED UPDATE AND NOTIFICATION TO ARLEEN REGARDING CPAP SETTINGS AND ISSUES. HE WILL ALSO NEED ARRANGEMENTS FOR A NEBULIZER AND DUONEB . SKULL SPLITTER PLYWOOD AND VENEER REPAIRER FOR DELIVERY AVAILABLE ON THE WEEKENDS. WILL F/U TUESDAY W/ [facility] FOR NEW PULMONARY ORDERS WITH APPROPRIATE STAFF. DCP- Discharge Planning Updated by [id number]: Noelle Sapp on 05/30/18 3:[address] Patient Name: ISAIAH GRAF Admission Status: ER Accout number: [id number] Admission Date: 05-28-2018 : 1955 Admission Diagnosis:ACUTE RESPIRATORY FAILURE WITH HYPOXIA Attending: Silvina Castano Current LOS: 2 Anticipated DC Date: Planned Disposition: Home or Self Care Primary Insurance: MEDICARE A & B Discharge Planning Comments: CM met with patient at bedside. Patient states he lives at home with is friend. He plans on returning to their home upon discharge. He states he feels safe at his home. He states he will have family drive him home upon discharge. Patient may need outpatient hemodialysis upon discharge set up in [place]. CM emailed Maria D Monson of possibility of needing placement. Patient stated that he had been prescribed a medication and couldn't get it filled because of cost 250.00. CM contacted patients pharmacy [phone]. Pharmacist stated the drug was BIDIL (hydralazine and Isorbide dinitrate) combination drug and not covered on patients formulary. CM will continue to follow and assist as needed with discharge planning / needs. Floorworker: Noelle Sapp [id number] - Discharge Planning Initial Assessment Updated by [id number]: Noelle Sapp on 05/30/18 4:12 pm * Is the patient Alert and Oriented? Yes * How many steps to enter\exit or inside your home? * PCP Andrew Mcclure * Pharmacy [facility] [phone] * Preadmission Environment Home with Family * ADLs Independent * Equipment None * List name and contact numbers for known caregivers / representatives who currently or will assist patient after discharge: Franklin maravilla [phone] * Verbal permission to speak to the caregivers and representatives has been obtained from the patient. Yes * Community resources currently utilized None * Additional services required to return to the preadmission environment? No * Can the patient safely return to the preadmission environment? Yes * Has this patient been hospitalized within the prior 30 days at any hospital? No Coverage Notice Reviewer: [id number] Marleny Hickman Notice Issued Date-Time: 06/05/2018 12:40 Notice Type: Patient Choice Letter Notice Delivered To: Patient Relationship to Patient: Inspector Toys Name: Delivery Method: HAND - Hand Delivered Gina Days: Prior Verbal Notification: Recipient Understood Notice: Yes Recipient Signature: Yes Med Rec Note Co-signed by Attending: Coverage Notice Comment: [facility] Reviewer: [id number] Marleny Hickman Notice Issued Date-Time: 06/05/2018 12:40 Notice Type: IM Discharge Notice Notice Delivered To: Patient Relationship to Patient: Inspector Toys Name: Delivery Method: HAND - Hand Delivered Gina Days: Prior Verbal Notification: Recipient Understood Notice: Yes Recipient Signature: Yes Med Rec Note Co-signed by Attending: Coverage Notice Comment: Last DP export: 06/05/18 2:42 p Patient Name: ISAIAH GRAF Page [id number] at 1033 All edits/amendments must be made on the electronic document DICTATION DATE: 06/06/18 103 BRUSHER HAND: REG 06/06/18 1032 RPT#: [id number] DC DATE: STATUS: ADM IN [facility] [address] [place] [address] END OF REPORT
[2018-06-06] MEDS ORDERED: BUMEX2 MG PO (11:58)
[2018-06-06] MEDS ORDERED: LEVOXYL200 MCG PO (11:59)
[2018-06-06 12:15] VITALS: BP 143/81
[2018-06-06] MEDS ORDERED: LOVASTATIN20 MG PO (12:15)
[2018-06-06] MEDS ORDERED: VENTOLIN HFA AER PO (12:21)
[2018-06-06] MEDS ORDERED: IPRAT-ALBUT 0.5-3 ML UPD (12:23)
--- NOTE | 2018-06-06 13:45 | NUR ---
24 HOUR URINE UP AT 12 NOON. SPECIMEN TAKEN TO LAB. PT HAS BEEN DISCHARGED. WAITING FOR RIDE.
[2018-06-06 13:50] LABS: CREATININE - URINE 101.5 mg/dL (30-125)
[2018-06-06 13:51] LABS: PROTEIN - URINE 457.9 mg/dL (0.0-11.9)
[2018-06-06 13:53] LABS: CREATININE - SERUM 5.3 mg/dL (0.6-1.3)
--- NOTE | 2018-06-06 14:42 | NUR ---
SON HERE TO DRIVE PT HOME. RE EXPLAINED TO PT AND SON ABOUT DISCHARGE. EXPLAINED TO SON AND PT ABOUT DIALYSIS AND DIALYSIS ACCESS. PT STILL WANTING TO GO HOME AND FOLLOW UP WITH DR. WHEELER IN [facility] NEXT WEEK. INSTRUCTED BOTH SON AND PATIENT ABOUT SIGNS AND SYMPTOMS OF FLUID OVERLOAD. BOTH UNDERSTAND. INSTRUCTED PT ON IJ REMOVAL. PT LYING SUPINE. HANDS WASHED AND GLOVES DONNED. HEAD TURNED TO L SIDE. DRESSING REMOVED AND SUTURES X2 REMOVED. SITE CLEAN WITH NO SIGNS OF INFECTION NOR BLEEDING. CATH REMOVED WITHOUT ANY ISSUES. CATH TIP INTACT AND NO SIGNS OF INFECTION. PRESSURE HELD ON SITE FOR 10 MIN. NO BLEEDING. BETADINE OINT APPLIED AND PRESSURE DRESSING APPLIED WITH TEGADERM. PT INSTRUCTED TO REMAIN LYING FOR 20 MINUTES.
--- NOTE | 2018-06-06 15:14 | NUR ---
PT SITTING UP ON BEDSIDE. NO DIZZINESS NOTED. PIC DC WITH TIP INTACT. INSTRUCTIONS GIVEN TO PT AND SON. BOTH VERBALIZE UNDERSTANDING. WC CALLED FOR.
--- NOTE | 2018-06-06 15:18 | NUR ---
WC HERE. TO CAR VIA .
== END 2018-06-06 15:19 | disposition home or self-care (01) | DRG 248 ==
LOC: D.ER 07:43 → D.CVICU 09:12 → D.M2 09:12 → D.EDHOLD 09:12 → D.CVICU 09:21 → D.M2 06-01 13:48
PROVIDERS: Internal Medicine; Internal Medicine Interventional Cardiology; ADMIT Internal Medicine Nephrology; ATTEND Internal Medicine Nephrology
PROC: 5A09357 Assistance with Respiratory Ventilation, Less than 24 Consecutive Hours, Continuous Positive Airway Pressure (ICD-10-PCS; 2018-05-28)
PROC: 05HM33Z Insertion of Infusion Device into Right Internal Jugular Vein, Percutaneous Approach (ICD-10-PCS; 2018-05-28)
PROC: 4A023N7 Measurement of Cardiac Sampling and Pressure, Left Heart, Percutaneous Approach (ICD-10-PCS; 2018-05-31)
PROC: B2111ZZ Fluoroscopy of Multiple Coronary Arteries using Low Osmolar Contrast (ICD-10-PCS; 2018-05-31)
PROC: B2151ZZ Fluoroscopy of Left Heart using Low Osmolar Contrast (ICD-10-PCS; 2018-05-31)
PROC: 02703EZ Dilation of Coronary Artery, One Artery with Two Intraluminal Devices, Percutaneous Approach (ICD-10-PCS; principal; 2018-05-31 10:53)
DX: I13.0 Hypertensive heart and chronic kidney disease with heart failure and stage 1 through stage 4 chronic kidney disease, or unspecified chronic kidney disease (principal); I50.23 Acute on chronic systolic (congestive) heart failure; J96.01 Acute respiratory failure with hypoxia; G93.41 Metabolic encephalopathy; N17.9 Acute kidney failure, unspecified; Z68.41 Body mass index [BMI] 40.0-44.9, adult; I25.119 Atherosclerotic heart disease of native coronary artery with unspecified angina pectoris; J44.9 Chronic obstructive pulmonary disease, unspecified; E11.22 Type 2 diabetes mellitus with diabetic chronic kidney disease; N18.9 Chronic kidney disease, unspecified; E87.6 Hypokalemia; D64.9 Anemia, unspecified; R53.81 Other malaise; E66.01 Morbid (severe) obesity due to excess calories; F17.200 Nicotine dependence, unspecified, uncomplicated

== ENCOUNTER 2018-06-10 06:38 | Inpatient (IN) | payer MEDICARE ==
[~2018-06-10] VITALS: Ht 180.3 cm; Wt 100.6 kg
--- NOTE | ~2018-06-10 | CN ---
PATIENT NAME:ISAIAH GRAF MEDICAL RECORD: [id number] : [birth year] LOCATION:[facility].2137 ADMIT DATE: 06/10/18 ACCOUNT: [id number] CONSULTING PHYSICIAN: CARMINE WATTERS MD REFERRING PHYSICIAN: VELMA WHITE MD DATE OF CONSULTATION: 06/12/2018 HISTORY OF PRESENT ILLNESS: This is a 62-year-old gentleman with a history of coronary artery disease, has a history of cardiomyopathy as well. Transferred from [place] with acute on chronic kidney disease approaching dialysis stage, is anemic, chronic renal insufficiency. He has had stenting of the circumflex, EF about 30%. We are asked to see him concerning his cardiovascular status. PAST MEDICAL AND SURGICAL HISTORY: Includes: 1. History of chronic renal insufficiency, severe approaching dialysis. Creatinine clearance 15. 2. Hypertension. 3. Hyperlipidemia. 4. Coronary artery disease, residual disease of the LAD. 5. Hypothyroidism, on replacement. ALLERGIES: None known. MEDICATIONS: Include Synthroid 200 mcg every day, Bumex 2 mg b.i.d., aspirin 81 every day, clonidine 0.2 t.i.d., Norvasc 5 every day, lovastatin 20 every day, carvedilol 25 b.i.d., Plavix 75 every day. SOCIAL HISTORY: Lives in the [place] area. Smokes about a pack a day, nondrinker. Easily takes care of all his ADLs. REVIEW OF SYSTEMS: The patient reports easy bruising but reports no swollen glands. The patient reports no fever, no night sweats, no significant weight gain, no significant weight loss. No significant exercise tolerance. The patient reports no dry eyes, no irritation, no vision change. Patient reports no difficulty hearing and no ear pain. Patient reports no frequent nose bleeds or nose and sinus problems. Patient reports on arm pain on exertion. No shortness of breath while lying down. No history of heart murmur. Patient reports no cough, no wheezing or coughing up blood. Patient reports no abdominal pain, no vomiting. Normal appetite. No diarrhea and not vomiting blood. No nausea and no constipation. Patient reports no incontinence. No difficulty urinating. No hematuria. No increased frequency. Patient reports no muscle aches. No weakness, no arthralgias, no back pain. No swelling of the extremities. Patient reports no abnormal mole, no jaundice, no rashes. Reports no loss of consciousness. No weakness and no numbness. No seizures, dizziness, or headaches. The patient reports no depression, no sleep disturbance, feeling safe in a relationship and no alcohol abuse. Patient reports on fatigue. Reports no runny nose or sinus pressure. No itching, no hives, and no frequent sneezing. PHYSICAL EXAMINATION: GENERAL: Pleasant gentleman in no acute distress, appears stated age. VITAL SIGNS: Blood pressure 129/76, pulse 89 and regular. HEENT: Normocephalic, atraumatic. NECK: No JVD or bruit. CONSULT REPORT [id number] ISAIAH GRAF HEART: Regular. LUNGS: Actually fairly good air excursion. ABDOMEN: Soft, nontender. EXTREMITIES: Pulses 1+, trace edema. IMPRESSION: Discussed with Dr. Ricci. Currently well compensated from a cardiomyopathic standpoint. He has had no recurrent angina. Would consider to manage his cardiomyopathy and coronary artery disease medically. This appears well compensated and defer intervention since this almost assuredly resulted in a dialysis on a permanent basis from a cardiovascular standpoint. Thank you for the consultation. TRANSINT:[id number] Voice Confirmation ID: [id number] DOCUMENT ID: [id number] CARMINE WATTERS MD CC: [id number] DICTATION DATE: 06/12/18 1047 METAL MOULDER: 06/12/18 1201 ADM IN [facility] [address] [place] [address]
[~2018-06-10 06:38] MED LIST: ASPIRIN81 MG; ASPIRIN81 MG PO; BUMEX2 MG PO; CATAPRES0.2 MG PO; COREG12.5 MG PO; IPRAT-ALBUT 0.5-3 ML UPD; LASIX40 MG PO; LEVOXYL200 MCG PO; LOVASTATIN20 MG PO; NORVASC5 MG PO; PLAVIX75 MG PO; VENTOLIN HFA AER PO
--- NOTE | 2018-06-10 06:57 | NUR ---
PT TRANSFERRED FROM [facility] FOR ARF, PREVIOUSLY TREATED BY DR WHEELER FOR SIMILAR COMPLAINTS. PT AAOX3, VS WNL, NO ACUTE DISTRESS NOTED. PT DENIES ANY PAIN OR NEEDS UPON ARRIVAL.
--- NOTE | 2018-06-10 07:05 | NUR ---
ASSUMED CARE OF PATIENT, RESTING ON STRETCHER NO COMPLAINTS AT THIS TIME. WEARING 2LPM NC, VITAL SIGNS STABLE. WAITING FOR ROOM ASSIGNMENT, CALL LIGHT WITHIN REACH.
[2018-06-10 07:32] LABS: BASOPHILS 0.2 % (0-2); EOSINOPHILS 2.3 % (0-7); HEMATOCRIT 29.1 % (42.0-54.0); HEMOGLOBIN 9.7 g/dL (13.5-17.5); IMMATURE GRANULOCYTES 0.6 % (0-5); LYMPHOCYTES 23.4 % (15-50); MCH 30.8 pg (26.0-34.0); MCHC 33.3 g/dL (31.0-37.0); MCV 92.4 fL (80.0-100.0); MEAN PLATELET VOLUME 9.6 fL (7.4-10.4); MONOCYTES 5.5 % (2-11); PLATELET COUNT 229 10x3/uL (130-400); RBC 3.15 10x6/uL (4.20-6.10); RDW 13.4 % (11.5-14.5); WBC 8.8 10x3/uL (4.8-10.8)
[2018-06-10 07:44] LABS: ANION GAP 17.5 mmol/L (8-16); BILIRUBIN - TOTAL 0.34 mg/dL (0.2-1.3); CALCIUM 8.2 mg/dL (8.5-10.1); CARBON DIOXIDE 21.5 mmol/L (21.0-32.0); CREATININE - SERUM 4.9 mg/dL (0.6-1.3); PROTEIN - SERUM 7.2 g/dL (6.4-8.2)
[2018-06-10 07:53] VITALS: BP 148/82
[2018-06-10 07:59] LABS: MAGNESIUM - SERUM 2.7 mg/dL (1.8-2.4)
[2018-06-10 08:00] LABS: TROPONIN-I 0.449 ng/mL (0.000-0.060)
--- NOTE | 2018-06-10 08:45 | NUR ---
ATTEMPTED TO CALL REPORT, THEY SAID THE NURSE WOULD BE ALLY, SHE IS IN A PATIENTS ROOM AND WILL CALL ME BACK.
[2018-06-10 09:23] VITALS: BP 141/74
--- NOTE | 2018-06-10 10:41 | NUR ---
ARRIVED FROM ER EARLIER. NO APPARENT DISTRESS. SEE ASSESSMENT FOR FURTHER EVAL
[2018-06-10 10:49] VITALS: BP 114/74; BMI 32.9
[2018-06-10 11:38] VITALS: BP 138/69
--- NOTE | 2018-06-10 11:39 | NUR ---
HEPARIN GTT DC AND IV DC WITH TIP INTACT. INSTRUCTIONS GIVEN AND PT UNDERSTANDS. TO CAR VIA WC
[2018-06-10 16:15] VITALS: BP 138/70
--- NOTE | 2018-06-10 19:15 | NUR ---
WALKING ROUNDS AND REPORT COMPLETED. PT RESTING IN BED. ALERT/ORIENTED. NO NEEDS VOICED. O2 @ 3L/NC WITH NONLABORED RESPIRATIONS. MONITOR AND CPOC.
--- NOTE | 2018-06-10 19:15 | NUR ---
PT ALSO WITH BUMEX @ 5ML/HR INFUSING TO LFA.
[2018-06-10 20:00] VITALS: BP 140/73
[2018-06-11] VITALS: BP 138/70
[2018-06-11 03:00] VITALS: BP 130/69
--- NOTE | 2018-06-11 04:57 | NUR ---
PT PULLED OUT IV IN HIS SLEEP. SITED 20G TO LEFT HAND AND IV BUMEX DRIP RESUMMED. AM THYROID MEDICATION GIVEN.
[2018-06-11 05:55] LABS: BASOPHILS 0.4 % (0-2); EOSINOPHILS 2.9 % (0-7); HEMATOCRIT 29.2 % (42.0-54.0); HEMOGLOBIN 9.7 g/dL (13.5-17.5); IMMATURE GRANULOCYTES 0.4 % (0-5); LYMPHOCYTES 21.7 % (15-50); MCH 30.6 pg (26.0-34.0); MCHC 33.2 g/dL (31.0-37.0); MCV 92.1 fL (80.0-100.0); MEAN PLATELET VOLUME 9.6 fL (7.4-10.4); MONOCYTES 6.4 % (2-11); NEUTROPHILS 68.2 % (40-80); PLATELET COUNT 218 10x3/uL (130-400); RBC 3.17 10x6/uL (4.20-6.10); RDW 13.2 % (11.5-14.5); WBC 7.7 10x3/uL (4.8-10.8)
[2018-06-11 06:25] LABS: ALBUMIN 2.6 g/dL (3.4-5.0); ANION GAP 14.1 mmol/L (8-16); BILIRUBIN - TOTAL 0.44 mg/dL (0.2-1.3); CALCIUM 8.1 mg/dL (8.5-10.1); CARBON DIOXIDE 23.2 mmol/L (21.0-32.0); CREATININE - SERUM 5.2 mg/dL (0.6-1.3); POTASSIUM - SERUM 4.3 mmol/L (3.5-5.1); PROTEIN - SERUM 6.5 g/dL (6.4-8.2)
--- NOTE | 2018-06-11 07:10 | NUR ---
REPORT RECIEVED FROM URGENT CARE NURSE PRACTITIONER. PATIENT AWAKE, ALERT AND ORIENTED X4. PATIENT IS STABLE AND VSS. PATIENT DENIES ANY NEEDS OR PAIN. WILL CONTINUE WITH PLAN OF CARE. SR UP X 2 BED IN LOW POSITON AND CALL LIGHT IN REACH.
--- NOTE | 2018-06-11 09:00 | NUR ---
ASSESSMENT COMPLETED. WILL CONTINUE TO MONITOR.
[2018-06-11 09:27] VITALS: BP 134/77
--- NOTE | 2018-06-11 10:00 | NUR ---
PATIENT REFUSED SCD'S.
[2018-06-11 11:56] VITALS: BP 130/70
[2018-06-11 15:55] VITALS: BP 132/67
--- NOTE | 2018-06-11 19:31 | NUR ---
INITIAL ROUNDS AND ASSESSMENT COMPLETED. PT RESTING IN BED WITH NO DISTRESS. O2 @ 3L/NC. BUMEX DRIP AT 5ML/HR INFUSING TO LEFT HAND. VOIDS TO URINAL. SR PER TELEMETRY. MONITOR AND CPOC.
[2018-06-11 20:00] VITALS: BP 134/76
--- NOTE | 2018-06-11 20:44 | NUR ---
WATCHING TV. NEW BAG OF BUMEX UP AND INFUSING. CALL LIGHT IN REACH.
[2018-06-12 00:25] VITALS: BP 138/75
--- NOTE | 2018-06-12 04:21 | NUR ---
RESTING IN BED WITH EYES CLOSED. RESPS EVEN/NONLABORED. NO DISTRESS. IV BUMEX INFUSING. MONITOR AND CPOC. CALL LIGHT IN REACH.
[2018-06-12 04:25] VITALS: BP 135/82
[2018-06-12 06:21] LABS: BASOPHILS 0.6 % (0-2); EOSINOPHILS 4.9 % (0-7); HEMATOCRIT 31.2 % (42.0-54.0); HEMOGLOBIN 10.3 g/dL (13.5-17.5); IMMATURE GRANULOCYTES 0.4 % (0-5); LYMPHOCYTES 26.8 % (15-50); MCH 30.5 pg (26.0-34.0); MCV 92.3 fL (80.0-100.0); MEAN PLATELET VOLUME 9.6 fL (7.4-10.4); MONOCYTES 5.4 % (2-11); NEUTROPHILS 61.9 % (40-80); PLATELET COUNT 228 10x3/uL (130-400); RBC 3.38 10x6/uL (4.20-6.10); RDW 13.3 % (11.5-14.5)
[2018-06-12 06:48] LABS: ALBUMIN 2.8 g/dL (3.4-5.0); ANION GAP 18.6 mmol/L (8-16); BILIRUBIN - TOTAL 0.49 mg/dL (0.2-1.3); CALCIUM 8.3 mg/dL (8.5-10.1); CARBON DIOXIDE 23.2 mmol/L (21.0-32.0); CREATININE - SERUM 5.3 mg/dL (0.6-1.3); POTASSIUM - SERUM 3.8 mmol/L (3.5-5.1); PROTEIN - SERUM 6.9 g/dL (6.4-8.2)
--- NOTE | 2018-06-12 07:45 | NUR ---
RECEIVED A/A/O X 4. IN BED WATCHING TV AND DENIES ANY PAIN OR DISCOMFORT. NO REQUESTS VOICED. BUMEX DRIP IN PROGRESS TO LEFT HAND WITHOUT REDNESS OR EDEMA AT SITE. PT IS AWARE OF FLUID RESTRICTION ORDER. BED LOCKED IN LOW POSITION WITH SIDERAILS UP X 2 AND CALL LIGHT IN REACH. ASSESSMENT COMPLETED AND WILL CONTINUE POC.
[2018-06-12 08:30] VITALS: BP 129/76
[2018-06-12 12:02] VITALS: BP 148/78
[2018-06-12 13:15] VITALS: Ht 180.3 cm; Wt 100.6 kg
--- NOTE | 2018-06-12 13:49 | NUR ---
I have reviewed this patient and I concur with the Shift Assessment completed by the Licensed Practical Nurse today this shift.
[2018-06-12 15:31] VITALS: BP 140/83
--- NOTE | 2018-06-12 19:37 | NUR ---
REPORT RECIEVED, INITIAL ROUNDS AND ASSESSMENT COMPLETED. PT RESTING IN BED WITH NO DISTRESS. IV BUMEX DRIP @ 5ML/HR INFUSING TO LEFT HAND. O2 @ 3L/NC. SR PER TELEMETRY. MONITOR AND CPOC. CALL LIGHT IN REACH.
[2018-06-12 20:00] VITALS: BP 139/76
[2018-06-13 00:25] VITALS: BP 143/73
[2018-06-13 04:25] VITALS: BP 139/75
[2018-06-13 05:43] LABS: ALBUMIN 2.7 g/dL (3.4-5.0); ANION GAP 13.7 mmol/L (8-16); BILIRUBIN - TOTAL 0.4 mg/dL (0.2-1.3); CALCIUM 8.1 mg/dL (8.5-10.1); CARBON DIOXIDE 26.8 mmol/L (21.0-32.0); CREATININE - SERUM 5.7 mg/dL (0.6-1.3); POTASSIUM - SERUM 3.5 mmol/L (3.5-5.1); PROTEIN - SERUM 6.9 g/dL (6.4-8.2)
[2018-06-13 05:57] LABS: BASOPHILS 0.3 % (0-2); EOSINOPHILS 4.5 % (0-7); HEMATOCRIT 30.9 % (42.0-54.0); HEMOGLOBIN 10.3 g/dL (13.5-17.5); IMMATURE GRANULOCYTES 0.3 % (0-5); LYMPHOCYTES 28.4 % (15-50); MCH 30.7 pg (26.0-34.0); MCHC 33.3 g/dL (31.0-37.0); MEAN PLATELET VOLUME 9.8 fL (7.4-10.4); MONOCYTES 6.7 % (2-11); NEUTROPHILS 59.8 % (40-80); PLATELET COUNT 223 10x3/uL (130-400); RBC 3.36 10x6/uL (4.20-6.10); RDW 13.1 % (11.5-14.5); WBC 7.6 10x3/uL (4.8-10.8)
--- NOTE | 2018-06-13 07:00 | NUR ---
RECEIVED REPORT. ASSUMED CARE OF PATIENT. CALL LIGHT WITHIN REACH. RESTING ON RIGHT LATERAL SIDE WITH EYES CLOSED. EASILY AROUSED. RESP EVEN AND UNLABORED. NO DISTRESS. DENIES NEEDS AT THIS TIME. BUMEX DRIP INFUSING AT 5 ORDERED.
[2018-06-13 08:41] VITALS: BP 147/81
--- NOTE | 2018-06-13 11:30 | NUR ---
PATIENT LYING IN BED WITH EYES OPEN. RESP EVEN AND UNLABORED. ATTENTION TOWARD TELEVISION. CALL LIGHT WITHIN REACH. NO DISTRESS.
--- NOTE | 2018-06-13 17:04 | MORECARE ---
CASE MANAGEMENT DISCHARGE SUMMARY PATIENT: ISAIAH GRAF UNIT: [id number] ADM DATE: 06/10/18 AGE: 62 : 51 SEX: M ROOM/BED: D.2137 AUTHOR: LIZET,DOC PHYSICIAN: REFERRING PHYSICIAN: VELMA WHITE MD DATE OF SERVICE: 06/13/18 Discharge Plan Patient Name: ISAIAH GRAF Facility: [facility]:[place] : 1955 Planned Disposition: Home Anticipated Discharge Date: Discharge Date: Expected LOS: Initial Reviewer: [email or web address] Initial Review Date: 06/13/2018 Generated: 06/13/18 6:04 pm Comments DCP- Discharge Planning Updated by [id number]: Sylvester Hickman on 06/13/18 4:[address] Patient Name: ISAIAH GRAF Admission Status: ER Accout number: [id number] Admission Date: 06-10-2018 : 1955 Admission Diagnosis: Attending: VELMA WHITE Current LOS: 3 Anticipated DC Date: Planned Disposition: Home Primary Insurance: MEDICARE A & B Discharge Planning Comments: CM MET WITH PT IN ROOM TO DISCUSS DISCHARGE PLANNING AND NEEDS. PT REPORTS LIVING AT HOME INDEPENDENTLY WITH A FRIEND. PT HAS CPAP AND NEBULIZER FROM [facility]. PT HAS NO OUTSIDE SERVICES ASSISTING IN THE HOME. CM DISCUSSED AVAILABILITY OF HOME HEALTH, REHAB SERVICES AND MEDICAL EQUIPMENT. PT DENIES DISCHARGE NEEDS, REPORTS HIS SON WILL PICK HIM UP FOR DISCHARGE HOME. PT REPORTS HE EXPECTS TO GO HOME ANY DAY AND HAS ONLY SEEN A DOCTOR ONCE SINCE BEING IN THE HOSPITAL. IMPORTANT MESSAGE FROM MEDICARE PROVIDED AND EXPLAINED. Door Glass Installer: Sylvester Hickman DCPIA - Discharge Planning Initial Assessment Updated by [id number]: Sylvester Hickman on 06/13/18 5:02 pm * Is the patient Alert and Oriented? Yes * How many steps to enter\exit or inside your home? NONE * PCP DR. JUAN ALBERTO GRAF [place] * Pharmacy [facility] IN [place] * Preadmission Environment Home with Family * ADLs Independent * Equipment CPAP Nebulizer * Other Equipment [facility] IN [place], * List name and contact numbers for known caregivers / representatives who currently or will assist patient after discharge: LAUREL GRAF, ARBEN, * Verbal permission to speak to the caregivers and representatives has been obtained from the patient. N/A * Community resources currently utilized None * Please name any agencies selected above. NONE * Additional services required to return to the preadmission environment? No * Can the patient safely return to the preadmission environment? Yes * Has this patient been hospitalized within the prior 30 days at any hospital? Yes Patient Name: ISAIAH GRAF Page 00110 at 1704 All edits/amendments must be made on the electronic document DICTATION DATE: 06/13/181703 TERMINAL CARMAN: REG 06/13/181703 RPT#: [id number] DC DATE: STATUS: ADM IN [facility] [address] [place] [address] END OF REPORT
--- NOTE | 2018-06-13 17:16 | NUR ---
NEW TELEMETRY PADS APPLIED, NO DISTRESS. CALL LIGHT WITHIN REACH.
--- NOTE | 2018-06-13 19:13 | NUR ---
AROUSES EASILY AND DENIES NEEDS AT THIS TIME .. BED IS LOW AND CALL LIGHT IS IN REACH. LCTRA BOWEL SOUNDS X4. SKIN WARM AND DRY PT ALERT AND OX4
[2018-06-13 20:00] VITALS: BP 137/77
[2018-06-13 21:28] VITALS: BP 146/78
[2018-06-14] VITALS: BP 143/70
[2018-06-14 04:00] VITALS: BP 144/90
--- NOTE | 2018-06-14 04:46 | NUR ---
FOUND IV TO BE DCED IN SLEEP WITH CATH INTACT. RESTARTED WITH 22 GAUGE TO RT HAND
[2018-06-14 06:24] LABS: BASOPHILS 0.5 % (0-2); EOSINOPHILS 4.3 % (0-7); HEMATOCRIT 31.5 % (42.0-54.0); HEMOGLOBIN 10.4 g/dL (13.5-17.5); IMMATURE GRANULOCYTES 0.2 % (0-5); LYMPHOCYTES 25.9 % (15-50); MCH 30.5 pg (26.0-34.0); MCV 92.4 fL (80.0-100.0); MEAN PLATELET VOLUME 9.8 fL (7.4-10.4); MONOCYTES 6.9 % (2-11); NEUTROPHILS 62.2 % (40-80); PLATELET COUNT 245 10x3/uL (130-400); RBC 3.41 10x6/uL (4.20-6.10); RDW 13.1 % (11.5-14.5); WBC 8.4 10x3/uL (4.8-10.8)
[2018-06-14 06:29] LABS: ANION GAP 17.8 mmol/L (8-16); BILIRUBIN - TOTAL 0.3 mg/dL (0.2-1.3); CALCIUM 8.3 mg/dL (8.5-10.1); CARBON DIOXIDE 25.9 mmol/L (21.0-32.0); CREATININE - SERUM 5.9 mg/dL (0.6-1.3); POTASSIUM - SERUM 3.7 mmol/L (3.5-5.1); PROTEIN - SERUM 7.1 g/dL (6.4-8.2)
[2018-06-14 08:34] VITALS: BP 145/89
--- NOTE | 2018-06-14 09:00 | NUR ---
PT RESTING IN BED. SHIFT ASSESSMENT PERFORMED. DENIES PAIN AT THIS TIME, DENIES ANY OTHER NEEDS AT THIS TIME. WILL CONT TO FOLLOW PLAN OF CARE
[2018-06-14 11:31] VITALS: BP 149/80
[2018-06-14 16:17] VITALS: BP 159/87
--- NOTE | 2018-06-14 17:35 | NUR ---
PT RESTING IN BED WATCHING TV. DENIES ANY NEEDS AT THIS TIME, DENIES PAIN AT THIS TIME, WILL CONT TO FOLLOW PLAN OF CARE
--- NOTE | 2018-06-14 19:20 | NUR ---
COMPLAINT OF BODY ACHES AND FEELING FEVERISH...NO FEVER NOTED VS STABLE LCTA BED IN LOW POSITION WITH CALL LIGHT IN REACH
[2018-06-14 20:00] VITALS: BP 156/80
--- NOTE | 2018-06-14 22:56 | NUR ---
RESTING WITH EYES CLOSED
[2018-06-15 00:30] VITALS: BP 140/70
--- NOTE | 2018-06-15 04:38 | NUR ---
I have reviewed this patient and I concur with the Shift Assessment completed by the Licensed Practical Nurse today this shift.
[2018-06-15 05:00] VITALS: BP 138/70
[2018-06-15 07:26] LABS: BASOPHILS 0.3 % (0-2); EOSINOPHILS 4.3 % (0-7); HEMATOCRIT 30.2 % (42.0-54.0); IMMATURE GRANULOCYTES 0.1 % (0-5); LYMPHOCYTES 27.3 % (15-50); MCH 30.4 pg (26.0-34.0); MCHC 33.1 g/dL (31.0-37.0); MCV 91.8 fL (80.0-100.0); MEAN PLATELET VOLUME 8.9 fL (7.4-10.4); MONOCYTES 4.8 % (2-11); NEUTROPHILS 63.2 % (40-80); PLATELET COUNT 206 10x3/uL (130-400); RBC 3.29 10x6/uL (4.20-6.10); RDW 13.1 % (11.5-14.5)
[2018-06-15 07:44] LABS: ALBUMIN 2.8 g/dL (3.4-5.0); ANION GAP 15.5 mmol/L (8-16); BILIRUBIN - TOTAL 0.33 mg/dL (0.2-1.3); CALCIUM 7.9 mg/dL (8.5-10.1); CARBON DIOXIDE 25.8 mmol/L (21.0-32.0); CREATININE - SERUM 5.9 mg/dL (0.6-1.3); POTASSIUM - SERUM 3.3 mmol/L (3.5-5.1); PROTEIN - SERUM 7.1 g/dL (6.4-8.2)
[2018-06-15 08:32] VITALS: BP 147/76
--- NOTE | 2018-06-15 09:00 | NUR ---
PT RESTING IN BED. TRAY AT BEDSIDE. AM MEDS GIVEN ORDERED. PT TOLERATED WELL. DENIES NEEDS AT THIS TIME, DENIES ANY OTHER WANTS AT THIS TIME, CALL LIGHT WITHIN REACH.
--- NOTE | 2018-06-15 12:00 | NUR ---
WITH NATALIA CARRILLO ABOUT PT BEING DISCHARGED. GERARDO DOES NOT WANT PT TO GO HOME DUE TO ELEVATED CREAT. SPOKE WITH NATALIA BORJA WITH [facility] AND SHE STATES THAT THE PT IS NONCOMPLIANT WITH OUTPATIENT DIALYSIS. SHE IS VERY FAMILIAR WITH THIS PT. SPOKE WITH PT AND HE STATES HE WILL DO DIALYSIS WHILE HERE IN THE HOSPITAL BUT DOES NOT WANT TO CONT AT HOME. NOTIFIED GERARDO WHAT JONH SAID. NOTIFIED PT SON, LAUREL THAT PT WILL BE DISCHARGING TODAY. PT SON BECOME UPSET AND STATES THAT PT WILL GO TO DIALYSIS AFTER DISCHARGE AND THAT HE WILL MAKE THE PT. PT SON, LAUREL CALLED PT AND AFTER PT SPOKE WITH LAUREL HE AGREED TO OUTPATIENT DIALYSIS. NOTIFIED BOTH GERARDO AND JONH.
[2018-06-15 12:04] VITALS: BP 153/79
--- NOTE | 2018-06-15 12:10 | MORECARE ---
CASE MANAGEMENT DISCHARGE SUMMARY PATIENT: ISAIAH GRAF UNIT: [id number] ADM DATE: 06/10/18 AGE: 62 : 51 SEX: M ROOM/BED: D.2137 AUTHOR: LIZET,DOC PHYSICIAN: REFERRING PHYSICIAN: VELMA WHITE MD DATE OF SERVICE: 06/15/18 Discharge Plan Patient Name: ISAIAH GRAF Facility: [facility]:[place] : 1955 Planned Disposition: Home Anticipated Discharge Date: 06/15/18 Discharge Date: Expected LOS: 5 Initial Reviewer: [id number] Initial Review Date: 06/13/2018 Generated: 06/15/18 1:10 pm DCP- Discharge Planning Updated by [id number]: Sylvester Hickman on 06/13/18 4:[address] Patient Name: ISAIAH GRAF Admission Status: ER Accout number: [id number] Admission Date: 06-10-2018 : 1955 Admission Diagnosis: Attending: VELMA WHITE Current LOS: 3 Anticipated DC Date: Planned Disposition: Home Primary Insurance: MEDICARE A & B Discharge Planning Comments: CM MET WITH PT IN ROOM TO DISCUSS DISCHARGE PLANNING AND NEEDS. PT REPORTS LIVING AT HOME INDEPENDENTLY WITH A FRIEND. PT HAS CPAP AND NEBULIZER FROM [facility]. PT HAS NO OUTSIDE SERVICES ASSISTING IN THE HOME. CM DISCUSSED AVAILABILITY OF HOME HEALTH, REHAB SERVICES AND MEDICAL EQUIPMENT. PT DENIES DISCHARGE NEEDS, REPORTS HIS SON WILL PICK HIM UP FOR DISCHARGE HOME. PT REPORTS HE EXPECTS TO GO HOME ANY DAY AND HAS ONLY SEEN A DOCTOR ONCE SINCE BEING IN THE HOSPITAL. IMPORTANT MESSAGE FROM MEDICARE PROVIDED AND EXPLAINED. Test Engine Evaluator: Sylvester Hickman DCPIA - Discharge Planning Initial Assessment Updated by [id number]: Sylvester Hickman on 06/13/18 5:02 pm * Is the patient Alert and Oriented? Yes * How many steps to enter\exit or inside your home? NONE * PCP DR. JUAN ALBERTO GRAF [place] * Pharmacy [facility] IN [place] * Preadmission Environment Home with Family * ADLs Independent * Equipment CPAP Nebulizer * Other Equipment [facility] IN [place], * List name and contact numbers for known caregivers / representatives who currently or will assist patient after discharge: LAUREL GRAF, SON, * Verbal permission to speak to the caregivers and representatives has been obtained from the patient. N/A * Community resources currently utilized None * Please name any agencies selected above. NONE * Additional services required to return to the preadmission environment? No * Can the patient safely return to the preadmission environment? Yes * Has this patient been hospitalized within the prior 30 days at any hospital? Yes Coverage Notice Reviewer: [id number] Marleny Hickman Notice Issued Date-Time: 06/13/2018 13:30 Notice Type: IM Discharge Notice Notice Delivered To: Patient Relationship to Patient: College Teacher Name: Delivery Method: HAND - Hand Delivered Gina Days: Prior Verbal Notification: Recipient Understood Notice: Yes Recipient Signature: Yes Med Rec Note Co-signed by Attending: Coverage Notice Comment: Last DP export: 06/13/18 4:04 p Patient Name: ISAIAH GRAF Page 84479 at 1210 All edits/amendments must be made on the electronic document DICTATION DATE: 06/15/181208 TIER OVER: REG 06/15/181208 RPT#: [id number] DC DATE: STATUS: ADM IN [facility] [address] [place] [address] END OF REPORT
[2018-06-15 16:12] VITALS: BP 168/91
--- NOTE | 2018-06-15 19:20 | NUR ---
AWAKE AND ALERT AND DENIES NEEDS. I ASSISTED WITH COMFORT AND PROVIDED WATER ...BED IS LOW AND CALL LIGHT IS IN REACH. SL TO RT HAND WITH NO EDEMA OR PAIN
[2018-06-15 20:00] VITALS: BP 131/65
--- NOTE | 2018-06-15 22:21 | NUR ---
RESTING ON SIDE WITH EYES CLOSED NO NOTED DISTRESS
--- NOTE | 2018-06-16 03:28 | NUR ---
I have reviewed this patient and I concur with the Shift Assessment completed by the Licensed Practical Nurse today this shift.
[2018-06-16 04:00] VITALS: BP 158/83
[2018-06-16 05:52] LABS: BASOPHILS 0.4 % (0-2); EOSINOPHILS 4.5 % (0-7); HEMATOCRIT 30.7 % (42.0-54.0); HEMOGLOBIN 10.3 g/dL (13.5-17.5); IMMATURE GRANULOCYTES 0.2 % (0-5); LYMPHOCYTES 26.9 % (15-50); MCH 30.5 pg (26.0-34.0); MCHC 33.6 g/dL (31.0-37.0); MCV 90.8 fL (80.0-100.0); MEAN PLATELET VOLUME 9.4 fL (7.4-10.4); MONOCYTES 6.2 % (2-11); NEUTROPHILS 61.8 % (40-80); PLATELET COUNT 211 10x3/uL (130-400); RBC 3.38 10x6/uL (4.20-6.10); WBC 8.2 10x3/uL (4.8-10.8)
[2018-06-16 06:02] LABS: ANION GAP 16.8 mmol/L (8-16); CALCIUM 7.8 mg/dL (8.5-10.1); CARBON DIOXIDE 22.5 mmol/L (21.0-32.0); CREATININE - SERUM 5.7 mg/dL (0.6-1.3); POTASSIUM - SERUM 3.3 mmol/L (3.5-5.1)
[2018-06-16 08:25] VITALS: BP 151/75
--- NOTE | 2018-06-16 10:06 | NUR ---
SPOKE WITH NATALIA COE WITH DR. SANTOS REGARDING CARDIOLOGY INTERVENTIONS. PER SARAVANAN AND DR. SANTOS, CARDIOLOGY WILL NOT PROCEED WITH INTERVENTIONS UNLESS PT BEGINS TO HAVE CHEST PAIN AGAIN. PT HAS NOT HAD ANY CHEST PAIN FOR AT LEAST THE PAST 3 DAYS. SPOKE WITH NATALIA AMBROSE WITH [facility] REGARDING CARDIOLOGY'S DECISION AND POSSIBLE HD. HALIE STATES SHE WILL TALK WITH PT ABOUT HD AND BEGIN THE WORKUP FOR A DIALYSIS ACCESS IF PT AGREES.
--- NOTE | 2018-06-16 10:39 | NUR ---
PT RESTING IN BED WITH BREAKFAST TRAY IN REACH. AM MEDICATIONS GIVEN ORDERED. SHIFT ASSESSMENT PERFORMED. DENIES PAIN AT THIS TIME, DENIES ANY OTHER NEEDS AT THIS TIME, WILL CONT FOLLOW PLAN OF CARE
[2018-06-16 12:08] VITALS: BP 156/72
--- NOTE | 2018-06-16 14:34 | NUR ---
Nutrition Follow up Pt is on Renal diet Eating 80% of meals on average Reviewed labs BM yesterday Weight 221lb RD following
--- NOTE | 2018-06-16 14:45 | NUR ---
PIV REMOVED TO PT RIGHT HAND WITH CATHETER TIP INTACT. TELEMETRY REMOVED AND TAKEN TO OPERATIONS BOARDMAN.
--- NOTE | 2018-06-16 16:42 | NUR ---
DISCHARGE PAPERS REVIEWED WITH PT, ALL QUESTIONS ANSWERED. PT SON IS STILL NOT HERE. PT IS CALLING HIS SON NOW.
--- NOTE | 2018-06-16 18:32 | NUR ---
PT LEFT HOSPITAL WITH SON
--- NOTE | 2018-06-19 09:48 | MORECARE ---
CASE MANAGEMENT DISCHARGE SUMMARY PATIENT: ISAIAH GRAF UNIT: [id number] ADM DATE: 06/10/18 AGE: 62 : 53 SEX: M ROOM/BED: D.2137 AUTHOR: LIZET,DOC PHYSICIAN: REFERRING PHYSICIAN: VELMA WHITE MD DATE OF SERVICE: 06/19/18 Discharge Plan Patient Name: ISAIAH GRAF Facility: [facility]:[place] : 1955 Planned Disposition: Home Anticipated Discharge Date: 06/16/18 Discharge Date: 06/16/2018 Expected LOS: 6 Initial Reviewer: [email or web address] Initial Review Date: 06/13/2018 Generated: 06/19/18 10:48 am DCP- Discharge Planning Updated by [email or web address]: Sylvester Hickman on 06/13/18 4:[address] Patient Name: ISAIAH GRAF Admission Status: ER Accout number: [id number] Admission Date: 06-10-2018 : 1955 Admission Diagnosis: Attending: VELMA WHITE Current LOS: 3 Anticipated DC Date: Planned Disposition: Home Primary Insurance: MEDICARE A & B Discharge Planning Comments: CM MET WITH PT IN ROOM TO DISCUSS DISCHARGE PLANNING AND NEEDS. PT REPORTS LIVING AT HOME INDEPENDENTLY WITH A FRIEND. PT HAS CPAP AND NEBULIZER FROM [facility]. PT HAS NO OUTSIDE SERVICES ASSISTING IN THE HOME. CM DISCUSSED AVAILABILITY OF HOME HEALTH, REHAB SERVICES AND MEDICAL EQUIPMENT. PT DENIES DISCHARGE NEEDS, REPORTS HIS SON WILL PICK HIM UP FOR DISCHARGE HOME. PT REPORTS HE EXPECTS TO GO HOME ANY DAY AND HAS ONLY SEEN A DOCTOR ONCE SINCE BEING IN THE HOSPITAL. IMPORTANT MESSAGE FROM MEDICARE PROVIDED AND EXPLAINED. Manager Of Internal: Sylvester Hickman DCPIA - Discharge Planning Initial Assessment Updated by [email or web address]: Sylvester Hickman on 06/13/18 5:02 pm * Is the patient Alert and Oriented? Yes * How many steps to enter\exit or inside your home? NONE * PCP DR. JUAN ALBERTO GRAF [place] * Pharmacy [facility] [place] * Preadmission Environment Home with Family * ADLs Independent * Equipment CPAP Nebulizer * Other Equipment [facility] [place], * List name and contact numbers for known caregivers / representatives who currently or will assist patient after discharge: LAUREL GRAF, SON, * Verbal permission to speak to the caregivers and representatives has been obtained from the patient. N/A * Community resources currently utilized None * Please name any agencies selected above. NONE * Additional services required to return to the preadmission environment? No * Can the patient safely return to the preadmission environment? Yes * Has this patient been hospitalized within the prior 30 days at any hospital? Yes Coverage Notice Reviewer: [email or web address] Marleny Hickman Notice Issued Date-Time: 06/13/2018 13:30 Notice Type: IM Discharge Notice Notice Delivered To: Patient Relationship to Patient: Heat Sealing Machine Operator Name: Delivery Method: HAND - Hand Delivered Gina Days: Prior Verbal Notification: Recipient Understood Notice: Yes Recipient Signature: Yes Med Rec Note Co-signed by Attending: Coverage Notice Comment: Last DP export: 06/15/18 11:10 a Patient Name: ISAIAH GRAF Page 14879 at 0948 All edits/amendments must be made on the electronic document DICTATION DATE: 06/19/18947 HUC OB: REG 06/19/18947 RPT#: [id number] DC DATE:06/16/18 STATUS: DIS IN [facility] [address] [place] [address] END OF REPORT
== END 2018-06-16 18:33 | disposition home or self-care (01) | DRG 682 ==
LOC: D.ER 06:38 → D.EDHOLD 06:52 → D.M2 06:52
PROVIDERS: Emergency Medicine; Family Medicine; Internal Medicine Nephrology; ADMIT Family Medicine; ATTEND Family Medicine
DX: N17.9 Acute kidney failure, unspecified (principal); J96.01 Acute respiratory failure with hypoxia; I13.2 Hypertensive heart and chronic kidney disease with heart failure and with stage 5 chronic kidney disease, or end stage renal disease; E11.22 Type 2 diabetes mellitus with diabetic chronic kidney disease; N18.5 Chronic kidney disease, stage 5; I50.9 Heart failure, unspecified; I25.10 Atherosclerotic heart disease of native coronary artery without angina pectoris; E83.39 Other disorders of phosphorus metabolism; Z91.19 Patient's noncompliance with other medical treatment and regimen; D63.1 Anemia in chronic kidney disease

== ENCOUNTER 2018-07-10 12:26 | Inpatient (IN) | payer MEDICARE ==
[~2018-07-10] VITALS: Ht 180.3 cm; Wt 104.5 kg
--- NOTE | ~2018-07-10 | EC ---
PATIENT:ISAIAH GRAF DATE OF SERVICE: 07/10/18 SEX: M MEDICAL RECORD: [id number] DATE OF : [birth year] LOCATION:D.M2 D.211 AGE OF PATIENT: 62 ADMISSION DATE: 07/10/18 REFERRING PHYSICIAN: INTERPRETING PHYSICIAN: RUDOLPH OLIVERA MD ECHOCARDIOGRAM REPORT ECHO CHARGES 5 ECHO LIMITED Date: 07/11/18 1 DOPPLER ECHO COLOR FLOW CLINICAL DIAGNOSIS: CHF ECHOCARDIOGRAPHIC MEASUREMENTS (adult normal given) AC root (d.<3.7cm) 0 cm LV Septum d (<1.2 cm> 0 cm Valve Excursion 0 cm LV Septum (systole) 0 cm Left Atria (s.<4.0cm> 0 cm LVPW d(<1.2cm) 0 cm RV (d.<2.3cm) 0 cm LVPW (sytole) 0 cm LV diastole(<5.6CM) 0 cm MV E-F(>70mm/sec) 0 cm LV systole 0 cm LVOT Diameter 0 cm MV exc.(>10mm) 0 cm Est.ejection fraction (50-75%) % DOPPLER: LVIT cm/sec A 0 cm/sec E 0 cm/sec LA 0 cm/sec RVSP 20.4 mmHg LVOT 0 cm/sec AOP1/2T m/s Asc. Ao 0 cm/sec RVOT 0 cm/sec RA 0 cm/sec PA 0 cm/sec AV Gradient Peak 0 mmHg AV Mean 0 mmHg AV Area 0 cm MV Gradient Peak 0 mmHg MV Mean 0 mmHg MV Area 0 cm COMMENTS: Customer Support Coordinator: Tsering [facility] Analysis Intern: 1 Dr. Olivera TAPE# PACS Pericardial Effusion Y DATE OF SERVICE: 07/11/2018 ECHOCARDIOGRAM FINDINGS: 1. Left ventricular chamber size is dilated. Left ventricular systolic function is markedly reduced, overall ejection fraction estimated at 20%. 2. Left atrium, right atrium and right ventricular chamber sizes are as well mildly dilated giving 4-chamber dilatation. 3. Valvular structures have normal structure and motion. ECHOCARDIOGRAM REPORT [id number] ISAIAH GRAF 4. Doppler interrogation reveals jjhrwpyf-[id number] mitral regurgitation, mild tricuspid regurgitation, no other valvular insufficiency or stenosis. Pulmonary systolic pressure is preserved at 20 mmHg. 5. No evidence of pericardial effusion or left ventricular thrombus. TRANSINT:[id number] Voice Confirmation ID: [id number] DOCUMENT ID: [id number] RUDOLPH OLIVERA MD CC: [id number] DICTATION DATE: 07/12/186 OILING MACHINE OPERATOR: 07/12/18 0416 ADM IN [facility] [address] [place] [id number]
--- NOTE | ~2018-07-10 | OP ---
PATIENT NAME: ISAIAH GRAF MEDICAL RECORD: [id number] :[birth year] LOCATION:D.M2 D.2118 ADMISSION DATE:07/10/18 SURGEON: COREY DENSON MD DATE OF OPERATION: 07/12/2018 PREOPERATIVE DIAGNOSIS: End-stage renal disease, without access for hemodialysis. POSTOPERATIVE DIAGNOSES: End-stage renal disease, without access for hemodialysis. PROCEDURES: 1. Insertion of right internal jugular 19-cm HemoSplit catheter under fluoroscopic guidance. 2. Immediate surgeon interpretation of fluoroscopic images. SURGEON: Corey Denson MD COMMERCIAL SALES DIRECTOR: None. BLOOD LOSS: Minimal. ANESTHESIA: General. COMPLICATIONS: None. The patient has had renal failure in the past. He had some recovery of kidney function and was off dialysis for a while is my understanding. He has had worsening in his condition and is going to be going back on dialysis. The risks, possible complications, and alternatives to the procedure were explained to the patient. He elects to proceed. The discussion specifically included, but was not limited to, bleeding requiring emergency reoperation; infection; great vessel injury as well as pneumothorax. OPERATIVE COURSE: The patient was conveyed to the operating room electively on 07/12/2018. General anesthesia was induced by the anesthesia staff. The right chest and right neck were sterilely prepped and draped. Under ultrasonographic guidance, I percutaneously accessed the right internal jugular vein. A guidewire passed easily. No radiologist was present for this procedure. Static fluoroscopic images were obtained and are kept in the PACS system. My interpretation of these radiographic images is dictated within the body of this operative note. A skin incision was accomplished around the wire entry site. A counterincision was accomplished in the right anterior-superior infraclavicular chest. I tunneled a 19-cm HemoSplit catheter from the chest incision to the neck incision. Over the wire, I dilated to a larger size. A dilator sheath was then advanced. The tips of the HemoSplit catheter were then advanced down through the peel-away sheath, which were then removed in its entirety. I pulled back on the flange of the HemoSplit catheter in order to seat the cuff into the subcutaneous tissues. An image was obtained over the mediastinum. It revealed that the longest HemoSplit catheter tip appeared to be within the OPERATIVE REPORT [id number] LESIA,ISAIAH superior vena cava. Another image obtained over the right neck revealed no apparent kinking or twisting of the HemoSplit catheter and no radiographic evidence of complication. The neck incision was closed with interrupted intracuticular 3-0 Vicryls as well as a single horizontal mattress 4-0 Vicryl Rapide. The flange of the HemoSplit catheter was sutured to the underlying skin with 2-0 nylons. Both lumens flushed easily and aspirated dark, nonpulsatile blood. I then topped off both lumens of the HemoSplit catheter with the appropriate amount of concentrated heparin. I felt that the patient was likely going to be a little oozy, and for this reason, I packed some Fibrillar up along the catheter tract. The patient was then extubated and conveyed to the post-anesthesia care unit, where he was in stable condition. TRANSINT:[id number] Voice Confirmation ID: [id number] DOCUMENT ID: [id number] COREY DENSON MD CC: [id number] DICTATION DATE: 07/12/181747 INFORMATION ASSURANCE SPECIALIST: 07/12/181945 ADM IN [facility] [address] [place] [address]
[2018-07-10 13:05] VITALS: BP 134/72
--- NOTE | 2018-07-10 13:51 | MORECARE ---
CASE MANAGEMENT DISCHARGE SUMMARY PATIENT: ISAIAH GRAF UNIT: [id number] ADM DATE: 07/10/18 AGE: 62 : 53 SEX: M ROOM/BED: D.2118 AUTHOR: ARTUR HINDS PHYSICIAN: REFERRING PHYSICIAN: EVGENY BIRCH MD DATE OF SERVICE: 07/10/18 Discharge Plan Patient Name: ISAIAH GRAF [facility] : 1955 Planned Disposition: Anticipated Discharge Date: Discharge Date: Expected LOS: Initial Reviewer: [email or web address] Initial Review Date: 07/10/2018 Generated: 07/10/18 2:51 pm DCPIA - Discharge Planning Initial Assessment Updated by [email or web address]: Gisella Love on 07/10/18 1:47 pm * Is the patient Alert and Oriented? Yes * How many steps to enter\exit or inside your home? * PCP Dr. Andrew Graf [place] * Pharmacy [facility] [place] * Preadmission Environment Home Alone * ADLs Independent * Equipment CPAP Nebulizer * Other Equipment None reported * List name and contact numbers for known caregivers / representatives who currently or will assist patient after discharge: Franklin Graf (son) [phone] * Verbal permission to speak to the caregivers and representatives has been obtained from the patient. Yes * Community resources currently utilized None * Please name any agencies selected above. NA * Additional services required to return to the preadmission environment? No * Can the patient safely return to the preadmission environment? Yes * Has this patient been hospitalized within the prior 30 days at any hospital? Yes Patient Name: ISAIAH GRAF Page 18146 at 1351 All edits/amendments must be made on the electronic document DICTATION DATE: 07/10/18 1350 LEGAL ADMINISTRATIVE SECRETARY: REG 07/10/18 1350 RPT#: [id number] DC DATE: STATUS: ADM IN [facility] [address] [place] [address] END OF REPORT
[2018-07-10] MEDS ORDERED: ENTRESTO 97 MG1 EACH PO (14:16)
[2018-07-10] MEDS ORDERED: ISOSORBIDE MONO30 M1 PO (14:17)
[2018-07-10] MEDS ORDERED: NITROQUICK0.4 MG SL (14:18)
--- NOTE | 2018-07-10 14:33 | NUR ---
RECEIVED PT FROM ER. PT IS AAO AND UP AD PAULO. RR EVEN AND UNLABORED ON BIPAP. NO S/S OF DISTRESS NOTED. R.AC PIV IS SALINE LOCKED. QUICKSTART, HISTORY, AND MED REQ COMPLETED. TELEMETRY PLACED ON PATIENT. 75 NORMAL SINUS RYTHYM. WILL NOTIFY RN FOR NEED OF ASSESSMENT. WILL CTM.
[2018-07-10 14:41] VITALS: BP 134/78
[2018-07-10 15:06] VITALS: BP 134/78; BMI 25.1; BMI 32.9
--- NOTE | 2018-07-10 15:11 | MORECARE ---
CASE MANAGEMENT DISCHARGE SUMMARY PATIENT: ISAIAH GRAF UNIT: [id number] ADM DATE: 07/10/18 AGE: 62 : 53 SEX: M ROOM/BED: D.2118 AUTHOR: LIZET,DOC PHYSICIAN: REFERRING PHYSICIAN: EVGENY BIRCH MD DATE OF SERVICE: 07/10/18 Discharge Plan Patient Name: ISAIAH GRAF Facility: [facility]:[place] : 1955 Planned Disposition: Anticipated Discharge Date: Discharge Date: Expected LOS: Initial Reviewer: [email or web address] Initial Review Date: 07/10/2018 Generated: 07/10/18 4:10 pm Comments DCP- Discharge Planning Updated by [email or web address]: Gisella Love on 07/10/18 2:[address] CM met with patient re: dc needs/plans. Patient transferred from [place] ER, with C-pap in use. CM made patient aware that a different CM will follow-up on medical floor to continue dc planning. PCP: Ren White. Pharmacy: [facility]. Equipment: C-pap, Nebebulizer from [facility] in [place]. Emergency contact: Franklin Graf, (son) [phone]. Patient gives permission to speak with son regarding his case. Denies using any community resources or requiring additional services upon dc home, at this time. Patient states he lives at home, alone and feels safe in his previous environment. CM will follow/assist with dc needs PRN. Gisella Love RN CM DCPIA - Discharge Planning Initial Assessment Updated by [email or web address]: Gisella Love on 07/10/18 1:47 pm * Is the patient Alert and Oriented? Yes * How many steps to enter\exit or inside your home? * PCP Ren White * Pharmacy [facility] * Preadmission Environment Home Alone * ADLs Independent * Equipment CPAP Nebulizer * Other Equipment None reported * List name and contact numbers for known caregivers / representatives who currently or will assist patient after discharge: Franklin Graf (son) [phone] * Verbal permission to speak to the caregivers and representatives has been obtained from the patient. Yes * Community resources currently utilized None * Please name any agencies selected above. NA * Additional services required to return to the preadmission environment? No * Can the patient safely return to the preadmission environment? Yes * Has this patient been hospitalized within the prior 30 days at any hospital? Yes Last DP export: 07/10/18 12:51 p Patient Name: ISAIAH GRAF Page 53905 at 1511 All edits/amendments must be made on the electronic document DICTATION DATE: 07/10/181509 ELECTROPHYSIOLOGY TECHNICIAN: REG 07/10/181509 RPT#: [id number] DC DATE: STATUS: ADM IN [facility] [address] [place] [address] END OF REPORT
--- NOTE | 2018-07-10 20:00 | NUR ---
INITIAL ROUNDS AND ASSESSMENT COMPLETED. PT RESTING IN BED WITH BIPAP IN PLACE. NEW ORDER FOR A BUMEX DRIP NOTED. SR PER TELEMETRY. MONITOR AND CPOC.
[2018-07-10 21:48] VITALS: BP 121/76
--- NOTE | 2018-07-10 22:00 | NUR ---
BUMEX DRIP NOW UP AND INFUSING TO RIGHT A/C. PT RESTING WITH EYES CLOSED, BIPAP IN PLACE. CLEAN/DRY AND NO NEEDS INDICATED.
[2018-07-11 01:34] VITALS: BP 116/67
[2018-07-11 05:55] VITALS: BP 137/82
[2018-07-11 08:07] VITALS: BP 144/78
--- NOTE | 2018-07-11 08:44 | MORECARE ---
CASE MANAGEMENT DISCHARGE SUMMARY PATIENT: ISAIAH GRAF UNIT: [id number] ADM DATE: 07/10/18 AGE: 62 : 51 SEX: M ROOM/BED: D.2118 AUTHOR: LIZET,DOC PHYSICIAN: REFERRING PHYSICIAN: EVGENY BIRCH MD DATE OF SERVICE: 07/11/18 Discharge Plan Patient Name: ISAIAH GRAF Facility: [facility]:[place] : 1955 Planned Disposition: Home Anticipated Discharge Date: Discharge Date: Expected LOS: Initial Reviewer: [email or web address] Initial Review Date: 07/10/2018 Generated: 07/11/18 9:43 am Comments DCP- Discharge Planning Updated by [email or web address]: Gisella Love on 07/10/18 2:[address] CM met with patient re: dc needs/plans. Patient transferred from [place] ER, with C-pap in use. CM made patient aware that a different CM will follow-up on medical floor to continue dc planning. PCP: Ren White. Pharmacy: [facility]. Equipment: C-pap, Nebebulizer from [facility] in [place]. Emergency contact: Franklin Graf, (son) [phone]. Patient gives permission to speak with son regarding his case. Denies using any community resources or requiring additional services upon dc home, at this time. Patient states he lives at home, alone and feels safe in his previous environment. CM will follow/assist with dc needs PRN. Gisella Love RN CM DCPIA - Discharge Planning Initial Assessment Updated by [email or web address]: Gisella Love on 07/10/18 1:47 pm * Is the patient Alert and Oriented? Yes * How many steps to enter\exit or inside your home? * PCP Ren White * Pharmacy [facility] * Preadmission Environment Home Alone * ADLs Independent * Equipment CPAP Nebulizer * Other Equipment None reported * List name and contact numbers for known caregivers / representatives who currently or will assist patient after discharge: Franklin Graf (son) [phone] * Verbal permission to speak to the caregivers and representatives has been obtained from the patient. Yes * Community resources currently utilized None * Please name any agencies selected above. NA * Additional services required to return to the preadmission environment? No * Can the patient safely return to the preadmission environment? Yes * Has this patient been hospitalized within the prior 30 days at any hospital? Yes Last DP export: 07/10/18 2:11 p Patient Name: ISAIAH GRAF Page 63453 at 0844 All edits/amendments must be made on the electronic document DICTATION DATE: 07/11/18842 ELECTRICAL CHECKOUT MECHANIC: REG 07/11/18842 RPT#: [id number] DC DATE: STATUS: ADM IN [facility] [address] [place] [address] END OF REPORT
[2018-07-11 09:34] LABS: ANION GAP 15.4 mmol/L (8-16); BILIRUBIN - TOTAL 0.49 mg/dL (0.2-1.3); CARBON DIOXIDE 24.9 mmol/L (21.0-32.0); CREATININE - SERUM 5.4 mg/dL (0.6-1.3); MAGNESIUM - SERUM 1.8 mg/dL (1.8-2.4); PHOSPHOROUS 6.5 mg/dL (2.5-4.9); POTASSIUM - SERUM 4.3 mmol/L (3.5-5.1); PROTEIN - SERUM 6.8 g/dL (6.4-8.2)
[2018-07-11 09:38] LABS: APTT 34.7 SECONDS (22.8-39.4); INR 1.11 (0.85-1.17); PROTIME 13.8 SECONDS (11.6-15.0)
[2018-07-11 09:40] LABS: D-DIMER-QUANTITATIVE 0.93 ug/mLFEU (0.20-0.54)
--- NOTE | 2018-07-11 09:44 | NUR ---
UP ADLIB IN ROOM. REFUSES SCDS AT THIS TIME.
[2018-07-11 10:28] LABS: BASOPHILS 0.4 % (0-2); EOSINOPHILS 4.3 % (0-7); HEMATOCRIT 31.5 % (42.0-54.0); HEMOGLOBIN 10.1 g/dL (13.5-17.5); IMMATURE GRANULOCYTES 0.1 % (0-5); LYMPHOCYTES 27.7 % (15-50); MCH 30.5 pg (26.0-34.0); MCHC 32.1 g/dL (31.0-37.0); MCV 95.2 fL (80.0-100.0); MEAN PLATELET VOLUME 10.5 fL (7.4-10.4); MONOCYTES 5.8 % (2-11); NEUTROPHILS 61.7 % (40-80); PLATELET COUNT 218 10x3/uL (130-400); RBC 3.31 10x6/uL (4.20-6.10); RDW 14.8 % (11.5-14.5); WBC 7.5 10x3/uL (4.8-10.8)
--- NOTE | 2018-07-11 10:54 | NUR ---
STILL UNABLE TO TOLERATE VQ SCAN IN NM, URINE SPECIMEN COLLECTED AND TAKEN TO LAB. WILL MONITOR.
--- NOTE | 2018-07-11 11:43 | NUR ---
A V/Q scan was attempted on 07/10/18. Patient was unable to tolerate laying flat. He did agree to try today, 07/11/18. Patient was still unable to tolerate laying flat. Spoke with Delano and she okayed it to be cancelled. If the patient can tolerate at later date and this exam is still needed, please re-order.
[2018-07-11 12:18] LABS: APPEARANCE CLEAR (CLEAR); COLOR STRAW (YELLOW); GLUCOSE NEGATIVE (NEGATIVE); KETONE NEGATIVE (NEGATIVE); NITRITE NEGATIVE (NEGATIVE); PROTEIN 3+ mg/dL (NEGATIVE); UROBILINOGEN NORMAL (NORMAL)
[2018-07-11 12:19] LABS: BACTERIA FEW /hpf (NONE SEEN); BILIRUBIN NEGATIVE (NEGATIVE); EPITHELIAL CELLS RARE /hpf (0-5); HYALINE CAST RARE /lpf (NONE SEEN); MUCUS <1+ /lpf (NONE SEEN); RED CELLS - URINE RARE /hpf (0-5)
[2018-07-11 12:35] VITALS: BMI 32.7
--- NOTE | 2018-07-11 13:57 | NUR ---
CONSENTS SIGNED FOR HEMASPLIT PLACEMENT.
[2018-07-11 15:19] VITALS: BP 123/67
[2018-07-11 17:47] VITALS: Ht 180.3 cm; Wt 104.5 kg
--- NOTE | 2018-07-11 19:30 | NUR ---
RESUMING PATIENT CARE. PATIENT RESTING COMFORTABLY IN BED, WITH BIPAP. RESPIRATIONS EVEN AND UNLABORED. NO S/S OF DISTRESS. NO C/O PAIN. DENIES NEEDS. CALL LIGHT WITHIN REACH. WILL CPOC.
[2018-07-11 20:45] VITALS: BP 128/67
[2018-07-11 23:37] VITALS: BP 99/50
[2018-07-12 06:16] VITALS: BP 108/57
[2018-07-12 08:24] VITALS: BP 131/45
[2018-07-12 09:39] LABS: CALCIUM 8.1 mg/dL (8.5-10.1); CARBON DIOXIDE 22.9 mmol/L (21.0-32.0); CREATININE - SERUM 5.3 mg/dL (0.6-1.3); POTASSIUM - SERUM 3.9 mmol/L (3.5-5.1)
[2018-07-12 10:46] LABS: BASOPHILS 0.2 % (0-2); EOSINOPHILS 2.5 % (0-7); HEMATOCRIT 33.2 % (42.0-54.0); HEMOGLOBIN 10.8 g/dL (13.5-17.5); IMMATURE GRANULOCYTES 0.2 % (0-5); MCH 30.8 pg (26.0-34.0); MCHC 32.5 g/dL (31.0-37.0); MCV 94.6 fL (80.0-100.0); MEAN PLATELET VOLUME 10.4 fL (7.4-10.4); MONOCYTES 3.1 % (2-11); PLATELET COUNT 213 10x3/uL (130-400); RBC 3.51 10x6/uL (4.20-6.10); RDW 14.5 % (11.5-14.5); WBC 6.4 10x3/uL (4.8-10.8)
[2018-07-12 11:36] VITALS: BP 129/69
--- NOTE | 2018-07-12 14:30 | NUR ---
PRE-OPS GIVEN. TO OR BY BED.
--- NOTE | 2018-07-12 17:12 | NUR ---
BACK FROM OR. VS WNL. RIGHT CHEST HEMASPLIT NOTED WITH ASMITA VELÁSQUEZ. WILL CONT. PLAN OF CARE.
[2018-07-12 17:14] VITALS: BP 129/72
--- NOTE | 2018-07-12 18:22 | NUR ---
PRESSURE DRSG APPLIED TO HEMASPLIT SITE DUE TO BLEEDING. WILL MONITOR.
--- NOTE | 2018-07-12 19:36 | NUR ---
RESUMING PATIENT CARE. PATIENT IS ALERT AND ORIENTED. RESTING COMFORTABLY IN BED. RESPIRATIONS ARE EVEN AND UNLABORED. NO S/S OF DISTRESS. NO C/O PAIN. CALL LIGHT WITHIN REACH. WILL CPOC.
[2018-07-12 20:00] VITALS: BP 122/69
[2018-07-13] VITALS: BP 118/67
[2018-07-13 04:00] VITALS: BP 130/65
--- NOTE | 2018-07-13 05:54 | NUR ---
CHANGED PRESSURE DRESSING. DID NOT CHANGE ORIGINAL DRESSING DO TO VISIBLE BLOOD CLOT. DID NOT WANT TO RESTART BLEEDING.
[2018-07-13 06:25] LABS: BASOPHILS 0.3 % (0-2); HEMATOCRIT 31.8 % (42.0-54.0); HEMOGLOBIN 10.5 g/dL (13.5-17.5); IMMATURE GRANULOCYTES 0.1 % (0-5); LYMPHOCYTES 27.3 % (15-50); MCH 31.1 pg (26.0-34.0); MCV 94.1 fL (80.0-100.0); MEAN PLATELET VOLUME 10.2 fL (7.4-10.4); NEUTROPHILS 62.3 % (40-80); PLATELET COUNT 218 10x3/uL (130-400); RBC 3.38 10x6/uL (4.20-6.10); RDW 14.8 % (11.5-14.5); WBC 7.2 10x3/uL (4.8-10.8)
[2018-07-13 06:41] LABS: ANION GAP 15.2 mmol/L (8-16); CALCIUM 8.1 mg/dL (8.5-10.1); CARBON DIOXIDE 24.5 mmol/L (21.0-32.0); CREATININE - SERUM 5.3 mg/dL (0.6-1.3); POTASSIUM - SERUM 3.7 mmol/L (3.5-5.1)
--- NOTE | 2018-07-13 07:30 | NUR ---
RECEIVED PT STANDING IN HALLWAY DENIES ANY NEEDS OR DISCOMFORT NAD NOTED
[2018-07-13 08:00] VITALS: BP 101/65
[2018-07-13 11:13] LABS: HEPATITIS C ANTIBODY 0.2 S/CO RAT (0.0-0.9)
[2018-07-13] MEDS ORDERED: OMNICEF300 MG PO (15:04)
[2018-07-13] MEDS ORDERED: ZITHROMAX250 MG PO (15:04)
[2018-07-13] MEDS ORDERED: LASIX80 MG PO (15:06)
--- NOTE | 2018-07-13 16:20 | NUR ---
REVIEWED DISCHARGE [id number] WITH PT STATES UNDERSTANDING COPY GIVEN DCD SALINE LOCK TO RAC WITH IV CATHETER INTACT SITE FREE OF REDNESS OR EDEMA PT DISCHARGED HOME IN STABLE CONDITION WITH ALL PERSONAL BELONGINGS LEFT UNIT VIA W/C WITH ALL PERSONAL BELONGINGS
--- NOTE | 2018-07-13 17:13 | MORECARE ---
CASE MANAGEMENT DISCHARGE SUMMARY PATIENT: ISAIAH GRAF UNIT: [id number] ADM DATE: 07/10/18 AGE: 62 : 51 SEX: M ROOM/BED: D.5044 AUTHOR: LIZET,DOC PHYSICIAN: REFERRING PHYSICIAN: EVGENY BIRCH MD DATE OF SERVICE: 07/13/18 Discharge Plan Patient Name: ISAIAH GRAF Facility: [facility]:[place] : 1955 Planned Disposition: Home Anticipated Discharge Date: 07/13/18 Discharge Date: 07/13/2018 Expected LOS: 3 Initial Reviewer: [id number] Initial Review Date: 07/10/2018 Generated: 07/13/18 6:12 pm Comments DCP- Discharge Planning Updated by [id number]: Sylvester Hickman on 07/13/18 4:[address] Patient Name: ISAIAH GRAF Encounter No: [id number] : 1955 Primary Insurance: MEDICARE A & B Anticipated DC Date: 07-13-2018 Planned Disposition: Home DCP follow-up note: CM MET WITH PT AT [facility] TO DISCUSS DISCHARGE NEEDS AND PLANNING. PT REPORTS HE IS READY TO GO HOME NOW. PT HAS A RIDE TO PICK HIM UP ON THE WAY. CM DISCUSSED AVAILABILITY OF HOME HEALTH, REHAB SERVICES AND MEDICAL EQUIPMENT. PT DENIES DISCHARGE NEEDS. IMPORTANT MESSAGE FROM MEDICARE PROVIDED AND EXPLAINED. FERNANDO Solis DCP- Discharge Planning Updated by [id number]: Gisella Love on 07/10/18 2:[address] CM met with patient re: dc needs/plans. Patient transferred from [place] ER, with C-pap in use. CM made patient aware that a different CM will follow-up on medical floor to continue dc planning. PCP: Dr. Andrew Graf, [place]. Pharmacy: [facility]. Equipment: C-pap, Nebebulizer from [facility] in [place]. Emergency contact: Franklin Graf, (son) [phone]. Patient gives permission to speak with son regarding his case. Denies using any community resources or requiring additional services upon dc home, at this time. Patient states he lives at home, alone and feels safe in his previous environment. CM will follow/assist with dc needs PRN. Gisella Love RN CM DCPIA - Discharge Planning Initial Assessment Updated by [id number]: Gisella Love on 07/10/18 1:47 pm * Is the patient Alert and Oriented? Yes * How many steps to enter\exit or inside your home? * PCP Dr. Andrew Graf [place] * Pharmacy [facility] * Preadmission Environment Home Alone * ADLs Independent * Equipment CPAP Nebulizer * Other Equipment None reported * List name and contact numbers for known caregivers / representatives who currently or will assist patient after discharge: Franklin Graf (son) [phone] * Verbal permission to speak to the caregivers and representatives has been obtained from the patient. Yes * Community resources currently utilized None * Please name any agencies selected above. NA * Additional services required to return to the preadmission environment? No * Can the patient safely return to the preadmission environment? Yes * Has this patient been hospitalized within the prior 30 days at any hospital? Yes Coverage Notice Reviewer: [email or web address] Marleny Hickman Notice Issued Date-Time: 07/13/2018 15:18 Notice Type: IM Discharge Notice Notice Delivered To: Patient Relationship to Patient: Silk Top Hat Body Maker Name: Delivery Method: HAND - Hand Delivered Gina Days: Prior Verbal Notification: Recipient Understood Notice: Yes Recipient Signature: Yes Med Rec Note Co-signed by Attending: Coverage Notice Comment: Last DP export: 07/11/18 7:44 a Patient Name: ISAIAH GRAF Page 26906 at 1713 All edits/amendments must be made on the electronic document DICTATION DATE: 07/13/181711 MAIL HANDLER SORTER: REG 07/13/181711 RPT#: [id number] DC DATE:07/13/18 STATUS: DIS IN [address] [place] [address] END OF REPORT
--- NOTE | 2018-07-14 12:40 | DS ---
PATIENT:ISAIAH GRAF :51 MEDICAL RECORD: [id number] DISCHARGE SUMMARY ADMISSION DATE: 07/10/18 DISCHARGE DATE: 07/13/18 HOSPITAL COURSE: This is a 62-year-old gentleman, who was here in the hospital last month with pulmonary edema, acute kidney injury on CKD, coronary artery disease, congestive heart failure. Initially had dialysis, had improvement and wanted to attempt to go home without dialysis and with continued fluid restriction. Unfortunately, he lasted approximately 2-3 weeks before he had to come to the hospital with significant volume overload. He was placed on a Bumex drip and then has had dialysis and a HemoSplit catheter placed. He confronted me today about having to go home. He would have to leave AMA in order to have to discharge him. He is certainly aware that he could even over the weekend and we have not made any arrangements for dialysis. I would prefer that he not prepare his hospital bill and be responsible. Did advice him to show up to dialysis and gave him the number for the dialysis center. We will convert his IV antibiotics to Zithromax 250 mg a day for 6 days, Omnicef 300 a day renal dose for 6 days. The prescriptions were sent to his pharmacy. I added Lasix 80 mg twice a day. Discussed adamantly about his fluid restriction. All of his other medications are home medications, which included Nicoderm patch, Protonix, levothyroxine, aspirin, amlodipine, isosorbide, Coreg, Plavix. Vital signs are stable on discharge. H&H 01/18 with a white count of 7200. Not the ideal circumstances regarding his discharge and he is responsible for what happens to him when he goes home. No family to discuss his poor decision making skills. I am very concerned that he may or may not show up for dialysis. Emphasized adamantly that the catheter can cause infection, not to shower, have that taken care of as soon as next week. Hopefully, we will have his information. I will have to let the [facility] team know what has transpired. Hopefully, he will pickle solution maker his medications, but I think noncompliance has been a major issue for Mr. Graf. We also had a good discussion about discontinuing smoking. He has been through so much that it is definitely time to quit smoking. Will need dialysis access. We discussed fistula placement that is more ideal, the catheter is only temporary. Spent at least 45 minutes with this discharge and will likely spend another 30 minutes discussing that this is a bad idea and attempted to have him stay. TRANSINT:[id number] Voice Confirmation ID: [id number] DOCUMENT ID: [id number] SILVINA WHEELER MD at 1240 CC: [id number] DICTATION DATE: 07/13/18 1510 COMPANY MANAGER: 07/14/18 0815 DIS IN 07/13/18 [id number] [place] [address]
== END 2018-07-13 16:20 | disposition home or self-care (01) | DRG 673 ==
LOC: D.ER 12:26 → D.EDHOLD 13:09 → D.M2 13:09
PROVIDERS: Internal Medicine Nephrology; Surgery; ADMIT Internal Medicine Nephrology; ATTEND Internal Medicine Nephrology
PROC: 05HM33Z Insertion of Infusion Device into Right Internal Jugular Vein, Percutaneous Approach (ICD-10-PCS; 2018-07-12)
PROC: B5131ZA Fluoroscopy of Right Jugular Veins using Low Osmolar Contrast, Guidance (ICD-10-PCS; 2018-07-12)
PROC: 0JH63XZ Insertion of Tunneled Vascular Access Device into Chest Subcutaneous Tissue and Fascia, Percutaneous Approach (ICD-10-PCS; principal; 2018-07-12 13:15)
DX: N17.9 Acute kidney failure, unspecified (principal); I50.23 Acute on chronic systolic (congestive) heart failure; J96.01 Acute respiratory failure with hypoxia; J18.9 Pneumonia, unspecified organism; I13.2 Hypertensive heart and chronic kidney disease with heart failure and with stage 5 chronic kidney disease, or end stage renal disease; F17.213 Nicotine dependence, cigarettes, with withdrawal; N18.5 Chronic kidney disease, stage 5; E11.22 Type 2 diabetes mellitus with diabetic chronic kidney disease; E11.65 Type 2 diabetes mellitus with hyperglycemia; E66.01 Morbid (severe) obesity due to excess calories; Z68.25 Body mass index [BMI] 25.0-25.9, adult; E78.5 Hyperlipidemia, unspecified; E03.9 Hypothyroidism, unspecified; J44.9 Chronic obstructive pulmonary disease, unspecified; D50.9 Iron deficiency anemia, unspecified; I25.10 Atherosclerotic heart disease of native coronary artery without angina pectoris; G47.33 Obstructive sleep apnea (adult) (pediatric); Z91.19 Patient's noncompliance with other medical treatment and regimen

== ENCOUNTER 2018-11-10 08:25 | Day surgery (SDC) | payer MEDICARE ==
[~2018-11-10] VITALS: Ht 170.2 cm; Wt 104.8 kg
[~2018-11-10 08:25] MED LIST changes: +ENTRESTO 97 MG1 EACH PO; +ISOSORBIDE MONO30 M1 PO; +LASIX80 MG PO; +NITROQUICK0.4 MG SL; +OMNICEF300 MG PO; +ZITHROMAX250 MG PO
[2018-11-10 09:01] LABS: ANION GAP 18.5 mmol/L (8-16); CALCIUM 9.1 mg/dL (8.5-10.1); CARBON DIOXIDE 26.6 mmol/L (21.0-32.0); CREATININE - SERUM 6.7 mg/dL (0.6-1.3); POTASSIUM - SERUM 5.1 mmol/L (3.5-5.1)
[2018-11-10 09:10] LABS: BASOPHILS 0.4 % (0-2); EOSINOPHILS 4.3 % (0-7); HEMATOCRIT 38.7 % (42.0-54.0); HEMOGLOBIN 13.4 g/dL (13.5-17.5); IMMATURE GRANULOCYTES 0.6 % (0-5); LYMPHOCYTES 30.1 % (15-50); MCH 31.5 pg (26.0-34.0); MCHC 34.6 g/dL (31.0-37.0); MCV 90.8 fL (80.0-100.0); MEAN PLATELET VOLUME 9.9 fL (7.4-10.4); MONOCYTES 5.6 % (2-11); RBC 4.26 10x6/uL (4.20-6.10); RDW 16.7 % (11.5-14.5); WBC 7.2 10x3/uL (4.8-10.8)
[2018-11-10 09:25] LABS: PLATELET COUNT 140 10x3/uL (130-400)
[2018-11-10 09:31] LABS: APTT 31.4 SECONDS (22.8-39.4); INR 1.07 (0.85-1.17); PROTIME 13.4 SECONDS (11.6-15.0)
[2018-11-10 11:46] VITALS: BP 122/66; Ht 170.2 cm; Wt 104.8 kg
--- NOTE | 2018-11-10 15:21 | NUR ---
1345 NOTED A FEW SMALL DRY SCABBY LESIONS ON RIGHT ARM, SAKINA.
--- NOTE | 2018-11-10 16:36 | NUR ---
1622-REC'D FROM RR, AWAKE AND ALERT.RIGHT ARM IN SLING.DENIES PAIN.DRESING CDI. VSS. CL IN EASY REACH. DRINKING ICE WATER
--- NOTE | 2018-11-10 17:36 | NUR ---
1700-DENIES PAIN. TOLERATED DIET COKE. DRESSING TO RIGHT ARM CDI, ABLE TO FEEL THRILL AND AUSCULATE BRUIT. AWAITING FOR TRAY ORDERED FORM DINING
--- NOTE | 2018-11-10 18:19 | NUR ---
1814-DISCHARGE CRITERIA MET.REVIEWED INSTRUCTIONS WITH PT AND SON.VERBALIZED UNDERSTANDING. ESCORTED OUT VIA W/C
--- NOTE | 2018-11-17 12:16 | OP ---
PATIENT NAME: ISAIAH GRAF MEDICAL RECORD: [id number] :51 LOCATION:D.OPS ADMISSION DATE: SURGEON: KOREY DENSON MD DATE OF OPERATION: 11/10/2018 PREOPERATIVE DIAGNOSES: 1. End-stage renal disease without chronic access for hemodialysis. 2. Facial lesions times 3. There is suspicious for a skin carcinoma. POSTOPERATIVE DIAGNOSES: 1. End-stage renal disease without chronic access for hemodialysis. 2. Facial lesions times 3. There is suspicious for a skin carcinoma. PROCEDURE: 1. Placement of right radiocephalic wrist arteriovenous fistula for hemodialysis access. 2. 4 mm punch biopsies of skin lesions of the right jew as well as both sides of the nose. SURGEON: Korey Denson MD DENTAL ASSOCIATE: None. BLOOD LOSS: Please see the anesthesia sheet. COMPLICATIONS: None. The risks, possible complications, and alternatives to the procedure were explained to the patient. He elects to proceed. Dr. Martinez asked that I obtain some tissue diagnosis for the skin lesions, which appeared to be either basal cell or squamous cell cancers. The patient consented to this and I told the patient that this would not be a curative process, but would be a process where we obtain a tissue diagnosis. OPERATIVE COURSE: The patient was conveyed to the operating room electively on 11/10/2018. General anesthesia was induced by the anesthesia staff. The entire face was sterilely prepped and draped. Utilizing a 4 mm punch biopsy device, I punched out biopsies at the margins of these ulcerated lesions. The biopsy sites were made hemostatic with the electrocautery. The right upper extremity was abducted to 90 degrees in relation to the patient's trunk. The right upper extremity was sterilely prepped and draped. The right wrist was supinated. I incised over the distal forearm and wrist in axial fashion overlying the radial artery. I dissected down to the radial artery, which was encircled with vessel loops. The pared radial veins were tied off or cauterized. Under the superior flap, I dissected down to the cephalic vein. This was divided distally and mobilized proximally. Side branches were ligated doubly and divided between ligatures. The radial cutaneous nerve was protected throughout the procedure, although I did tell the patient preoperatively that he may have a numb area on the dorsal webspace between the thumb and the first OPERATIVE REPORT [id number] ISAIAH GRAF finger. The incision was accomplished on the radial artery. I then beveled the cephalic vein. A side-to-end arterial to venous anastomosis was then fashioned with a running 7-0 Prolene suture. I then flushed out through the vein. There was a good thrill within the fistula. There was good flow in the radial artery proximal and distal to the anastomosis. A topical hemostatic agent was applied within the wound. The subdermis was approximated with interrupted 3-0 Vicryls. The skin was approximated with a running intracuticular 3-0 Vicryl. Benzoin and Steri-Strips were applied. The patient was then extubated and conveyed to the post-anesthesia care unit. He likely will be dismissed home tonight. TRANSINT:[id number] Voice Confirmation ID: [id number] DOCUMENT ID: [id number] 11/17/2018 Edited for floor tech errors, [email or web address]. KOREY DENSON MD at 1216 CC: SILVINA WHEELER MD and ALLEN MARTINEZ [id number] DICTATION DATE: 11/15/18 1413 TRANSLATOR INTERPRETER: 11/15/18 1437 [facility] 11/10/18 [address] [place] [address]
== END 2018-11-10 18:15 | disposition home or self-care (01) ==
LOC: D.OPS 08:25
PROVIDERS: Anesthesiology; ATTEND Internal Medicine Nephrology
DX: N18.6 End stage renal disease (principal); C44.319 Basal cell carcinoma of skin of other parts of face; C44.311 Basal cell carcinoma of skin of nose; Z01.812 Encounter for preprocedural laboratory examination

== ENCOUNTER 2019-03-16 20:19 | Emergency (ER) | payer MEDICARE ==
[~2019-03-16] VITALS: Ht 170.2 cm; Wt 97.7 kg
[2019-03-16 20:28] VITALS: Ht 170.2 cm; Wt 97.7 kg
[2019-03-16 21:26] LABS: POTASSIUM - SERUM 5.3 mmol/L (3.5-5.1)
[2019-03-16 21:40] LABS: ALBUMIN 1.9 g/dL (3.4-5.0); ANION GAP 15.3 mmol/L (8-16); BILIRUBIN - TOTAL 0.49 mg/dL (0.2-1.3); CALCIUM 9.1 mg/dL (8.5-10.1); CREATININE - SERUM 6.5 mg/dL (0.6-1.3); PROTEIN - SERUM 7.3 g/dL (6.4-8.2)
[2019-03-16 21:53] LABS: BASOPHILS 0.1 % (0-2); EOSINOPHILS 0.2 % (0-7); HEMATOCRIT 33.4 % (42.0-54.0); IMMATURE GRANULOCYTES 0.5 % (0-5); LYMPHOCYTES 4.8 % (15-50); MCH 28.3 pg (26.0-34.0); MCHC 29.9 g/dL (31.0-37.0); MCV 94.6 fL (80.0-100.0); MEAN PLATELET VOLUME 10.2 fL (7.4-10.4); MONOCYTES 7.9 % (2-11); NEUTROPHILS 86.5 % (40-80); RBC 3.53 10x6/uL (4.20-6.10); RDW 16.7 % (11.5-14.5); WBC 19.5 10x3/uL (4.8-10.8)
[2019-03-16 21:55] LABS: PLATELET COUNT 319 10x3/uL (130-400)
[2019-03-17 04:21] LABS: BASOPHILS 0.1 % (0-2); EOSINOPHILS 0.2 % (0-7); HEMATOCRIT 36.6 % (42.0-54.0); HEMOGLOBIN 11.2 g/dL (13.5-17.5); IMMATURE GRANULOCYTES 0.4 % (0-5); LYMPHOCYTES 4.8 % (15-50); MCH 28.6 pg (26.0-34.0); MCHC 30.6 g/dL (31.0-37.0); MCV 93.6 fL (80.0-100.0); MEAN PLATELET VOLUME 9.8 fL (7.4-10.4); MONOCYTES 5.7 % (2-11); NEUTROPHILS 88.8 % (40-80); PLATELET COUNT 318 10x3/uL (130-400); RBC 3.91 10x6/uL (4.20-6.10); RDW 16.4 % (11.5-14.5); WBC 18.7 10x3/uL (4.8-10.8)
[2019-03-17 04:44] LABS: ANION GAP 18.7 mmol/L (8-16); CALCIUM 8.9 mg/dL (8.5-10.1); CREATININE - SERUM 6.3 mg/dL (0.6-1.3); POTASSIUM - SERUM 5.7 mmol/L (3.5-5.1)
[2019-03-17 04:56] LABS: ALBUMIN 2.1 g/dL (3.4-5.0); BILIRUBIN - TOTAL 0.6 mg/dL (0.2-1.3); PROTEIN - SERUM 7.1 g/dL (6.4-8.2)
[2019-03-17 05:13] VITALS: BP 80/53
== END 2019-03-17 05:14 | disposition short-term general hospital (02) ==
LOC: D.ER 20:19
PROVIDERS: Family Medicine
DX: K92.2 Gastrointestinal hemorrhage, unspecified (principal); K81.0 Acute cholecystitis; I13.2 Hypertensive heart and chronic kidney disease with heart failure and with stage 5 chronic kidney disease, or end stage renal disease; E11.22 Type 2 diabetes mellitus with diabetic chronic kidney disease; N18.6 End stage renal disease; I50.9 Heart failure, unspecified; Z99.2 Dependence on renal dialysis; J44.9 Chronic obstructive pulmonary disease, unspecified